=== PATIENT | male | born 1975 | race Caucasian/White ===

== ENCOUNTER 2018-01-16 15:15 | Inpatient (IN) | payer OTHER, BC ==
[~2018-01-16] VITALS: Ht 182.9 cm; Wt 81.8 kg
[~2018-01-16 15:15] MED LIST: DEXAMETHASONE SOD PHOS 4 MG/ML VIAL IV ONE; MORPHINE SULFATE 2 MG/ML SYRINGE IV PUSH ONE; ONDANSETRON HCL 4 MG/2 ML VIAL IV ONE; ONDANSETRON HCL 4 MG/2 ML VIAL IV PUSH ONE; PHENYLEPH/NS 1000 MCG/10 ML SYR IV ONE; PHENYLEPHRINE HCL 10 MG/ML VIAL IV ONE; PROPOFOL 200 MG/20 ML AMP IV ONE; ROCURONIUM INJ 50 MG/5 ML SYRINGE IV PUSH ONE; SODIUM CHLORIDE 0.9% 20 ML VIAL IV ONE; STERILE WATER FOR INJECTION 20 ML VIAL IV ONE; SUCCINYLCHOLINE CHLORIDE 200 MG/10 ML VIAL IV ONE; VECURONIUM BROMIDE 20 MG VIAL IV ONE; ePHEDrine/NS 25 MG/5 ML SYRINGE IV ONE
[2018-01-16] MEDS ORDERED: LIDOCAINE 1%/EPINEPHrine 1:100,000 SOLN 30 ML VIAL ONE (15:28)
[2018-01-16 15:43] LABS: AUTOMATED NEUTROPHIL # 18.4 TH/MM3 (1.8-7.7); BASOPHIL # 0.1 TH/MM3 (0-0.2); BASOPHIL % 0.3 % (0.0-2.0); EOSINOPHIL # 0.1 TH/MM3 (0-0.4); EOSINOPHIL % 0.3 % (0.0-4.0); HEMATOCRIT 35.2 % (39.0-51.0); HEMOGLOBIN 11.8 GM/DL (13.0-17.0); LYMPH % 13.8 % (9.0-44.0); LYMPHOCYTE # 3.2 TH/MM3 (1.0-4.8); MEAN CELL VOLUME 90.3 FL (80.0-100.0); MEAN CORPUSCULAR HEMOGLOBIN 30.4 PG (27.0-34.0); MEAN CORPUSCULAR HGB CONC 33.6 % (32.0-36.0); MEAN PLATELET VOLUME 8.4 FL (7.0-11.0); MONO % 4.8 % (0.0-8.0); MONOCYTE # 1.1 TH/MM3 (0-0.9); NEUT % 80.8 % (16.0-70.0); PLATELET COUNT 157 TH/MM3 (150-450); RED CELL DISTRIBUTION WIDTH 12.4 % (11.6-17.2); WHITE BLOOD COUNT 22.8 TH/MM3 (4.0-11.0)
[2018-01-16] MEDS ORDERED: DIPHTH/TETANUS/ACEL PERTUSSIS (BOOSTER) 0.5 ML VIAL/PFS IM ONE (15:58)
[2018-01-16 16:04] LABS: INTERNATIONAL NORMALIZED RATIO 1.2 RATIO
[2018-01-16] MEDS ORDERED: IOHEXOL 350 MG/ML 10 ML VIAL (for RAD DIAG) IVCONTRAST ONE (16:13)
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
[2018-01-16] MEDS ORDERED: ONDANSETRON HCL 4 MG/2 ML VIAL IV PUSH PRN (16:30)
[2018-01-16] MEDS ORDERED: ENALAPRILAT 1.25 MG/ML VIAL IV PUSH PRN (16:30)
[2018-01-16] MEDS ORDERED: CHLORHEXIDINE GLUCONATE 2 % 1 PACK (2 CLOTHS) TOP PRN (16:30)
[2018-01-16] MEDS ORDERED: MISCELLANEOUS NURSING INFORMATION XX SCH (16:30)
[2018-01-16] MEDS ORDERED: SODIUM CHLORIDE 0.9% FLUSH 10 ML FLUSH IV FLUSH PRN (16:30)
[2018-01-16 16:41] VITALS: O2SAT 99
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
[2018-01-16] MEDS ORDERED: GENTAMICIN SULFATE 80 MG/2 ML VIAL ONE (17:05)
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
[2018-01-16] MEDS ORDERED: SODIUM CHLOR 0.9% 250 ML INJ 250 ML ONE (17:11)
[2018-01-16] MEDS ORDERED: VANCOMYCIN HCL 1000 MG VIAL ONE (17:11)
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
[2018-01-16 17:59] LABS: AUTOMATED NEUTROPHIL # 12.4 TH/MM3 (1.8-7.7); BASOPHIL % 0.1 % (0.0-2.0); EOSINOPHIL % 0.1 % (0.0-4.0); HEMATOCRIT 27.3 % (39.0-51.0); HEMOGLOBIN 9.1 GM/DL (13.0-17.0); LYMPH % 8.3 % (9.0-44.0); LYMPHOCYTE # 1.2 TH/MM3 (1.0-4.8); MEAN CELL VOLUME 88.8 FL (80.0-100.0); MEAN CORPUSCULAR HEMOGLOBIN 29.6 PG (27.0-34.0); MEAN CORPUSCULAR HGB CONC 33.3 % (32.0-36.0); MEAN PLATELET VOLUME 7.6 FL (7.0-11.0); NEUT % 84.5 % (16.0-70.0); PLATELET COUNT 93 TH/MM3 (150-450); RED BLOOD COUNT 3.07 MIL/MM3 (4.50-5.90); RED CELL DISTRIBUTION WIDTH 13.7 % (11.6-17.2); WHITE BLOOD COUNT 14.6 TH/MM3 (4.0-11.0)
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
[2018-01-16 18:13] LABS: BICARBONATE 23.7 MEQ/L (21.0-32.0); CALCIUM 11.5 MG/DL (8.5-10.1)
[2018-01-16] MEDS ORDERED: NALOXONE HCL 0.4 MG/ML AMP IV PUSH PRN (18:15)
[2018-01-16] MEDS ORDERED: ONDANSETRON HCL 4 MG/2 ML VIAL IVP PRN (18:15)
[2018-01-16] MEDS ORDERED: ACETAMINOPHEN/HYDROcodone 325 MG/5 MG TAB PO PRN (18:15)
[2018-01-16] MEDS ORDERED: MORPHINE SULFATE 4 MG/ML INJ IV PUSH PRN ×2 (18:15→18:30)
--- NOTE | 2018-01-16 18:24 | PD.OP ---
Operative Report Date of Surgery: Jan 16, 2018 Preoperative Diagnosis: Right tibia/fibula segmental open grade 3 fractures Left shoulder comminuted proximal humerus fracture. Postoperative Diagnosis: Same Procedure: Right leg irrigation and debridement of skin through bone for open tibia and fibula fractures. Right leg treatment of open tibia fractures with intramedullary nail Anesthesia: Gen. Surgeon: Rafa Hanson Ad Operations Associate(s): CATRACHO Gomez The surgical procedure was assisted by my Advanced Registered Nurse Practitioner. My YARN DRY ROOM WORKER presence was necessary throughout this case for the manipulation and positioning of the surgical extremity. My YARN DRY ROOM WORKER was assisting me throughout the duration of this procedure. The skill set of an Advance Registered Nurse Practitioner was medically necessary to complete this procedure. During the surgical case, the cardiovascular surgical tech was working at the back table and the Advance Registered Nurse Practitioner was directly assisting me. Operation and Findings: Implants: Synthes tibal nail, size: 10 x 3 60, statically locked Estimated blood loss: 400 cc The patient received intravenous Ancef, vancomycin, gentamicin. After the appropriate anesthesia was administered, the patient was prepped and draped in the supine position in the usual sterile fashion. Skin assessment showed multiple lacerations. Proximally the laceration was lateral. There was exposed muscle and subcutaneous fascia. Deep the open fibula fracture was palpated. There was a small transverse laceration distal third over the open tibia fracture. Small 1 cm laceration distal third lateral leg was noted where the fibula came through the skin. Minor abrasions posterior distal thigh noted.. There was mild to moderate swelling noted to the leg. There was no evidence of compartment syndrome during the case nor at the end of the case. We debrided skin edges for portions that were torn. We debrided down into the muscle in the proximal lateral laceration. Only minimal devitalization of the muscle was noted. We exposed all of the open portions of the fractures and curetted bone edges. Minimal contamination was noted throughout each of these open areas. We thoroughly irrigated all of the open wounds. We exchanged instruments and gloves. We made incision proximal to the patella. We carefully dissected down to the quadriceps tendon. An in-line longitudinal split to the quadriceps tendon was completed. The capsule of the knee was entered. We placed the smooth trocar within the knee joint down to the proximal tibia, protecting the patella and trochlea during the case. We then reduced the tibia fractures manually and under fluoroscopic imaging. A ball-tipped guidewire was placed into the tibial shaft, passing the fracture sites. This was placed down to the distal physeal line of the tibia. We then sequentially reamed the tibia to 1 mm larger than the implanted tibial nail. We obtained good cortical chatter. We measured the appropriate length for the tibial nail. We then passed the tibial nail into the medullary canal of the tibia. The nail was secured proximally with 2 screw(s), using the associated jig as a guide .We used the perfect upper sioux technique distally to visualize the distal tibial screw holes. We placed 2 screws distally. We thoroughly irrigated the incisions again including a lavage of the arthrotomy site proximally. The quadriceps split was closed with a #1 Vicryl. The remaining incisions were closed with #2-0 Vicryl, followed by derek. The postoperative plan is for nonweightbearing to the right lower extremity. Additionally we have ordered 3 days of intravenous Ancef for the open fracture. Additionally, a sling was ordered for the left shoulder with nonweightbearing to the left shoulder. Chemical DVT prophylaxis will be performed with Lovenox initially followed by aspirin. Rafa Hanson MD Jan 16, 2018 18:23
[2018-01-16] MEDS ORDERED: NORC5TAB PO (18:26)
[2018-01-16] MEDS ORDERED: ASPI-183 PO (18:26)
[2018-01-16] MEDS ORDERED: ENOX40IN SQ (18:26)
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
[2018-01-16] MEDS ORDERED: CALCIUM CHLORIDE 10% SOLN 1 GRAM/10 ML SYR ONE ×2 (18:33→19:57)
[2018-01-16 19:15] VITALS: O2SAT 100
[2018-01-16] MEDS ORDERED: PROPOFOL 1000 MG/100 ML INJ 100 ML ONE (19:24)
[2018-01-16] MEDS: PROPOFOL 1000 MG/100 ML INJ 100 ML IV PRN (19:30)
[2018-01-16] MEDS ORDERED: *morphine SULFATE 4 MG/ML PERIprocedure ONLY ONE (19:34)
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
[2018-01-16] MEDS ORDERED: HEPARIN SODIUM - IV 10,000 UNITS/10 ML VIAL ONE (19:38)
[2018-01-16] MEDS ORDERED: PROTAMINE SULFATE 50 MG/5 ML VIAL ONE (19:38)
[2018-01-16] MEDS ORDERED: DO NOT ADM ANY ANTICOAGULANT DRUGS PRN (19:45)
[2018-01-16 19:54] VITALS: BP 114/56; PULSE 118; RESP 10; O2SAT 100
[2018-01-16] MEDS ORDERED: SODIUM BICARBONATE 8.4% INJ 50 MEQ/50 ML SYR ONE (19:57)
[2018-01-16] MEDS ORDERED: ACETAMINOPHEN 1000 MG/100 ML 100 ML IV ONE (19:58)
[2018-01-16] MEDS ORDERED: ENOXAPARIN SODIUM 40 MG/0.4 ML SYRINGE SQ SCH (20:00)
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
--- NOTE | 2018-01-16 20:15 | RADRPT ---
EXAM DATE/TIME: 01/16/2018 19:35 [facility] COMPARISON: CHEST SINGLE AP, January 16, 2018, 15:17. INDICATIONS : Confirm central line placement. MEDICAL HISTORY : None. SURGICAL HISTORY : None. ENCOUNTER: Initial ACUITY: 1 day PAIN SCORE: Non-responsive. LOCATION: Bilateral chest FINDINGS: There is a right internal jugular central line place with the tip overlying the right brachiocephalic vein region. There is a right-sided chest tube in place. A pneumothorax is not clearly seen on this portable supine chest x-ray. There is subcutaneous emphysema. Right-sided rib fractures are seen. ET tube is well placed. The NG tube tip is at the distal esophagus. CONCLUSION: Intrajugular central line in place with the tip overlying the right brachiocephalic vein region. Richard Rutherford MD on January 16, 2018 at 20:11 Board Certified Radiologist. This report was verified electronically.
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
[2018-01-16] MEDS ORDERED: fentaNYL DRIP 250 ML IV PRN ×2 (20:45→21:45)
[2018-01-16] MEDS ORDERED: PROPOFOL 1000 MG/100 ML INJ 100 ML IV PRN (20:45)
[2018-01-16] MEDS: BACITRACIN TOP OINT 15 GM TUBE TOP SCH (21:00)
[2018-01-16] MEDS: SODIUM CHLOR 0.9% 1000 ML INJ 1,000 ML IV SCH (22:00)
[2018-01-16 22:08] LABS: AUTOMATED NEUTROPHIL # 8.9 TH/MM3 (1.8-7.7); BASOPHIL % 0.1 % (0.0-2.0); HEMATOCRIT 22.5 % (39.0-51.0); HEMOGLOBIN 7.8 GM/DL (13.0-17.0); LYMPH % 3.4 % (9.0-44.0); LYMPHOCYTE # 0.3 TH/MM3 (1.0-4.8); MEAN CELL VOLUME 88.4 FL (80.0-100.0); MEAN CORPUSCULAR HEMOGLOBIN 30.6 PG (27.0-34.0); MEAN CORPUSCULAR HGB CONC 34.6 % (32.0-36.0); MEAN PLATELET VOLUME 7.7 FL (7.0-11.0); MONO % 7.8 % (0.0-8.0); MONOCYTE # 0.8 TH/MM3 (0-0.9); NEUT % 88.7 % (16.0-70.0); PLATELET COUNT 91 TH/MM3 (150-450); RED BLOOD COUNT 2.55 MIL/MM3 (4.50-5.90); RED CELL DISTRIBUTION WIDTH 13.7 % (11.6-17.2)
[2018-01-16 22:10] LABS: INTERNATIONAL NORMALIZED RATIO 1.2 RATIO; PROTHROMBIN TIME - PATIENT 12.2 SEC (9.8-11.6)
[2018-01-16 22:20] VITALS: O2SAT 97
[2018-01-16 22:21] LABS: BICARBONATE 24.5 MEQ/L (21.0-32.0); CALCIUM 7.4 MG/DL (8.5-10.1); CREATININE 0.9 MG/DL (0.60-1.30)
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
[2018-01-16 22:30] VITALS: BP 142/85; PULSE 100; PULSE 102; RESP 14; TEMP 97.9; O2SAT 100
[2018-01-16 22:40] LABS: CALCIUM-PROTEIN CORRECTED 9.3 MG/DL (8.5-10.1); TOTAL PROTEIN 3.9 GM/DL (6.4-8.2)
[2018-01-16] MEDS: DOCUSATE SODIUM 100 MG CAP PO SCH (22:50)
[2018-01-16] MEDS: PANTOPRAZOLE SODIUM 40 MG VIAL IVP SCH (22:50)
--- NOTE | 2018-01-16 22:55 | RADRPT ---
EXAM DATE/TIME: 01/16/2018 22:26 [facility] COMPARISON: CHEST SINGLE AP, January 16, 2018, 19:35. INDICATIONS : Evaluate for pneumothorax. MEDICAL HISTORY : Unresponsive. SURGICAL HISTORY : Unresponsive. ENCOUNTER: Initial ACUITY: 1 day PAIN SCORE: Non-responsive. LOCATION: Bilateral chest FINDINGS: ET tube, NG tube and right internal jugular central line appear well placed. There is a right chest t ube. A significant right pneumothorax is not seen on this supine portable chest x-ray. There is subcu taneous emphysema seen in the right chest. The heart and mediastinal structures are normal in size. T here is linear increased density in the right midlung likely related to contusion or atelectasis. Rig ht rib fractures are seen. CONCLUSION: A pneumothorax is not seen on this supine chest x-ray. There is a right chest tube present. No medias tinal shift is seen. Richard Rutherford MD on January 16, 2018 at 22:50 Board Certified Radiologist. This report was verified electronically.
[2018-01-17] VITALS (17 sets, daily range): BP systolic 92–168; BP diastolic 48–58; PULSE 56–110; RESP 14–18; TEMP 96.8–99; O2SAT 95–100
[2018-01-17 00:43] LABS: AUTOMATED NEUTROPHIL # 7.7 TH/MM3 (1.8-7.7); BASOPHIL % 0.1 % (0.0-2.0); HEMATOCRIT 23.7 % (39.0-51.0); HEMOGLOBIN 8.5 GM/DL (13.0-17.0); LYMPH % 3.6 % (9.0-44.0); LYMPHOCYTE # 0.3 TH/MM3 (1.0-4.8); MEAN CORPUSCULAR HEMOGLOBIN 30.9 PG (27.0-34.0); MEAN CORPUSCULAR HGB CONC 35.9 % (32.0-36.0); MEAN PLATELET VOLUME 8.1 FL (7.0-11.0); MONO % 7.2 % (0.0-8.0); MONOCYTE # 0.6 TH/MM3 (0-0.9); NEUT % 89.1 % (16.0-70.0); PLATELET COUNT 104 TH/MM3 (150-450); RED BLOOD COUNT 2.76 MIL/MM3 (4.50-5.90); RED CELL DISTRIBUTION WIDTH 13.9 % (11.6-17.2); WHITE BLOOD COUNT 8.7 TH/MM3 (4.0-11.0)
[2018-01-17] MEDS: PROPOFOL 1000 MG/100 ML INJ 100 ML IV PRN ×2 (01:00→06:50)
[2018-01-17] MEDS ORDERED: NOREPINEPHRINE 4 MG/D5W 250 ML IV PRN (01:15)
[2018-01-17] MEDS: CHLORHEXIDINE GLUCONATE 2 % 1 PACK (2 CLOTHS) TOP SCH ×2 (01:34→20:06)
[2018-01-17] MEDS: SODIUM CHLOR 0.9% 1000 ML INJ 1,000 ML IV SCH (03:44)
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
[2018-01-17 04:34] LABS: AUTOMATED NEUTROPHIL # 10.9 TH/MM3 (1.8-7.7); BASOPHIL % 0.1 % (0.0-2.0); HEMATOCRIT 26.9 % (39.0-51.0); HEMOGLOBIN 9.5 GM/DL (13.0-17.0); LYMPH % 4.9 % (9.0-44.0); LYMPHOCYTE # 0.6 TH/MM3 (1.0-4.8); MEAN CELL VOLUME 86.7 FL (80.0-100.0); MEAN CORPUSCULAR HEMOGLOBIN 30.5 PG (27.0-34.0); MEAN CORPUSCULAR HGB CONC 35.2 % (32.0-36.0); MEAN PLATELET VOLUME 7.7 FL (7.0-11.0); MONO % 7.8 % (0.0-8.0); NEUT % 87.2 % (16.0-70.0); PLATELET COUNT 123 TH/MM3 (150-450); RED CELL DISTRIBUTION WIDTH 13.9 % (11.6-17.2); WHITE BLOOD COUNT 12.5 TH/MM3 (4.0-11.0)
[2018-01-17 04:55] LABS: BICARBONATE 25.4 MEQ/L (21.0-32.0); CALCIUM 7.2 MG/DL (8.5-10.1); CREATININE 1.12 MG/DL (0.60-1.30)
[2018-01-17 05:12] LABS: CALCIUM-PROTEIN CORRECTED 8.6 MG/DL (8.5-10.1); TOTAL PROTEIN 4.6 GM/DL (6.4-8.2)
[2018-01-17] MEDS: MULTIVITAMINS/MINERALS THERAPEUTIC TAB PO SCH (08:43)
[2018-01-17] MEDS: DOCUSATE SODIUM 100 MG CAP PO SCH ×2 (08:43→20:48)
[2018-01-17] MEDS: BACITRACIN TOP OINT 15 GM TUBE TOP SCH ×2 (09:00→20:48)
--- NOTE | 2018-01-17 10:27 | PD.ORT.PN ---
Subjective Subjective Remarks Patient has been extubated. Patient says he feels much better. He has several family members at the bedside. Objective Vitals Vital Signs Date Time Temp Pulse Resp B/P (MAP) Pulse Ox O2 Delivery O2 Flow Rate FiO2 01/17/18 09:34 98 Nasal Cannula 3.00 01/17/18 09:34 98 Nasal Cannula 3 01/17/18 08:43 97 40 01/17/18 06:00 80 01/17/18 04:00 98.1 74 14 112/58 (76) 100 01/17/18 04:00 40 01/17/18 04:00 74 01/17/18 03:30 98 40 01/17/18 02:00 58 01/17/18 01:25 96.8 75 14 93/51 96 01/17/18 01:15 73 87/53 01/17/18 00:00 97.6 82 14 106/58 (74) 99 01/17/18 00:00 40 01/16/18 22:30 100 01/16/18 22:30 40 01/16/18 22:30 97.9 102 14 142/85 (104) 100 01/16/18 22:20 97 50 01/16/18 20:00 50 01/16/18 20:00 120 16 167/68 (101) 100 Mechanical Ventilator 50 120/62 (81) 01/16/18 19:54 118 10 114/56 100 01/16/18 19:45 107 10 143/63 (89) 100 Mechanical Ventilator 50 104/52 (69) 01/16/18 19:30 118 10 147/67 (93) 100 Mechanical Ventilator 50 107/54 (71) 01/16/18 19:15 96.2 01/16/18 19:15 105 10 137/69 (91) 100 Mechanical Ventilator 50 131/66 (87) 01/16/18 19:15 100 50 01/16/18 19:11 50 01/16/18 19:11 96.2 116 10 187/80 (115) 95 Mechanical Ventilator 50 143/73 (96) 01/16/18 16:41 99 15.00 100 I/O 01/16/18 01/16/18 01/16/18 01/17/18 01/17/18 01/17/18 07:00 15:00 23:00 07:00 15:00 23:00 Intake Total 6484 ml 3400 ml Output Total 1850 ml 2975 ml Balance 4634 ml 425 ml Intake IV Total 6000 ml 1400 ml Packed Cells 250 ml Cryoprecipitate 484 ml Blood Product IV Normal Saline Flush 250 ml Other 1500 ml Output Urine Total 1050 ml 2750 ml Gastric Drainage Total 0 ml Chest Tube Drainage Total 350 ml 50 ml Drainage Total 125 ml Estimated Blood Loss 450 ml 50 ml Result Diagram: 01/17/18 0415 01/17/18 0415 Other Results Laboratory Tests Test 01/16/18 15:23 01/16/18 21:35 Prothromb Time International Ratio 1.2 RATIO 1.2 RATIO Prothrombin Time 12.0 SEC (9.8-11.6) 12.2 SEC (9.8-11.6) Imaging Last 24 hours Impressions Chest X-Ray 01/17/18 0600 Signed Impressions: Service Date/Time: Wednesday, January 17, 2018 03:08 - CONCLUSION: No significant interval change. Right-sided chest tube in place with prominent right-sided subcutaneous emphysema but no evidence of pneumothorax. Kartik Garcia MD Thoracic Spine CT 01/16/181537 Signed Impressions: Service Date/Time: Tuesday, January 16, 2018 15:56 - CONCLUSION: 1. No evidence of acute bony or soft tissue thoracic spine trauma. 2. Right pneumothorax, right lung contusion and subcutaneous emphysema. Morris Vu MD Lumbar Spine CT 01/16/181537 Signed Impressions: Service Date/Time: Tuesday, January 16, 2018 15:56 - CONCLUSION: 1. Large posterior subcutaneous hematoma with active extravasation from L4-S1. 2. No evidence of acute bone injury. 3. Advanced degenerative disease L5-S1. 4. No other significant abnormality. Morris Vu MD Head CT 01/16/181537 Signed Impressions: Service Date/Time: Tuesday, January 16, 2018 15:45 - CONCLUSION: No acute disease. Richard Rutherford MD Chest X-Ray 01/16/181537 Signed Impressions: Service Date/Time: Tuesday, January 16, 2018 15:17 - CONCLUSION: Right chest tube with resolution of the previously seen tension. Some residual pneumothorax is still suspected. Richard Rutherford MD Chest CT 01/16/181537 Signed Impressions: Service Date/Time: Tuesday, January 16, 2018 15:56 - CONCLUSION: 1. Large persistent right pneumothorax with a right-sided chest tube. 2. Bilateral areas is suspected pulmonary contusion. 3. Subpleural blebs or pneumatoceles. 4. Left proximal humeral fracture with extravasation/hemorrhage. 5. Right third through seventh rib fractures. 6. Subcutaneous emphysema in the right chest and axilla Richard Rutherford MD ADDENDUM: COMPARISON: CT CERVICAL SPINE W/O CONTRAST, January 16, 2018, 15:45. The CT scan was reviewed with Dr. Hammond. The axillary artery across the region of the fracture is occluded for a short segment. There is a large amount of surrounding hematoma. The artery reconstitutes at its junction with the brachial. The exam also demonstrates a small amount of active contrast extravasation at the site of the patient's fracture. Findings would be consistent with axillary artery injury. Juan Carlos Martinez MD Cervical Spine CT 01/16/18 1538 Signed Impressions: Service Date/Time: Tuesday, January 16, 2018 15:45 - CONCLUSION: 1. No evidence of acute cervical bony or soft tissue injury. 2. Subcutaneous emphysema at the base of the neck and superior mediastinum Morris Vu MD Abdomen/Pelvis CT 01/16/18 1538 Signed Impressions: Service Date/Time: Tuesday, January 16, 2018 15:56 - CONCLUSION: 1. Hemorrhage in the superficial fat in the midline at the lower back region from the L3-S1 levels. 2. No acute intra-abdominal or pelvic abnormality is seen. Richard Rutherford MD Pelvis X-Ray 01/16/18 1518 Signed Impressions: Service Date/Time: Tuesday, January 16, 2018 15:17 - CONCLUSION: No acute disease. Richard Rutherford MD Chest X-Ray 01/16/18 1518 Signed Impressions: Service Date/Time: Tuesday, January 16, 2018 15:17 - CONCLUSION: Right tension pneumothorax. Richard Rutherford MD Objective Remarks The patient is awake and alert. The patient seems to have good understanding now of what happened yesterday although he does not remember the events of yesterday. Right lower extremity has mild to moderate bloody drainage on the digits. The compartments are soft. He can easily move the toes on the right foot. He has a bounding 2 posterior size pedis pulse. Left upper extremity has dressings and a wound VAC. He has a 2+ radial pulse. He moves the fingers well on the left hand. Assessment & Plan Assessment and Plan Postop day #1 status post right leg irrigation and debridement with intramedullary nailing of tibia. Postop day #1 status post left upper extremity fasciotomy and axillary artery exploration (Dr. Aguila), with left proximal humerus fracture. Change dressing on the right lower extremity today, nursing aware. They will call me if there are problems with the wounds. 3 days of intravenous antibiotics for open fracture right leg. Lovenox for DVT prophylaxis. Nonweightbearing to right lower extremity. Dr. Ceron Took the patient back yesterday for a decompression of compartment syndrome of the upper extremity along with relieving hematoma off of compressed axillary artery. The patient is doing very well from this currently with a strong pulse on the left hand. He does still have a fracture of the left proximal humerus. I will talk to my partner Dr. Patterson to see if he wants to consider surgical management for ORIF of the proximal humerus. He currently still has an open wound in that area with a wound VAC. Dr. Ceron has communicated to me that he would expect closure could be done for that wound within the next couple of days. Rafa Hanson MD Jan 17, 2018 10:27
[2018-01-17] MEDS: ENOXAPARIN SODIUM 30 MG/0.3 ML SYRINGE SQ SCH (13:07)
[2018-01-17] MEDS: METHOCARBAMOL 500 MG TAB PO SCH ×2 (13:16→20:47)
[2018-01-17] MEDS: LIDOCAINE HCL 5% PATCH T-DERMAL SCH (13:16)
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
[2018-01-17] MEDS ORDERED: POTASSIUM PHOSPHATE INJ 30 MMOL in SODIUM CHLOR 0.9% 250 ML INJ 250 ML IV PRN (14:00)
[2018-01-17] MEDS ORDERED: POTASSIUM CHLOR 20 MEQ PREMIX 100 ML IV PRN ×2 (14:00)
[2018-01-17] MEDS ORDERED: POTASSIUM PHOSPHATE MONOBASIC 500 MG TAB PO/TUBE PRN (14:00)
[2018-01-17] MEDS ORDERED: SODIUM PHOSPHATE INJ 30 MMOL in SODIUM CHLOR 0.9% 250 ML INJ 240 ML IV PRN (14:00)
[2018-01-17] MEDS ORDERED: POTASSIUM PHOSPHATE MONOBASIC 500 MG TAB PO PRN (14:00)
[2018-01-17] MEDS ORDERED: MAGNESIUM OXIDE 400 MG TAB PO PRN (14:00)
[2018-01-17] MEDS ORDERED: MAGNESIUM SULFATE INJ 2 GM in SODIUM CHLORIDE 0.9% INJ 96 ML IV PRN (14:00)
[2018-01-17] MEDS ORDERED: MAGNESIUM SULFATE INJ 4 GM in SODIUM CHLORIDE 0.9% INJ 92 ML IV PRN (14:00)
[2018-01-17] MEDS ORDERED: POTASSIUM CHLORIDE 20 MEQ PWD PACKET PO PRN (14:00)
[2018-01-17] MEDS ORDERED: POTASSIUM CHLOR 40 MEQ PREMIX 100 ML IV PRN ×2 (14:00)
[2018-01-17 14:33] LABS: MAGNESIUM 1.6 MG/DL (1.5-2.5)
[2018-01-17] MEDS: MORPHINE SULFATE 4 MG/ML INJ IV PUSH PRN ×2 (14:38→20:58)
[2018-01-17] MEDS: PANTOPRAZOLE SODIUM 40 MG VIAL IVP SCH (18:00)
[2018-01-17] MEDS ORDERED: ENOXAPARIN SODIUM 40 MG/0.4 ML SYRINGE SQ SCH (18:30)
[2018-01-17] MEDS: ACETAMINOPHEN/HYDROcodone 325 MG/5 MG TAB PO PRN (18:51)
[2018-01-18] VITALS (14 sets, daily range): BP systolic 98–128; BP diastolic 53–70; PULSE 80–104; RESP 12–20; TEMP 98.1–98.5; O2SAT 92–99
[2018-01-18] MEDS: ENOXAPARIN SODIUM 30 MG/0.3 ML SYRINGE SQ SCH ×2 (01:05→11:15)
[2018-01-18] MEDS: ACETAMINOPHEN/HYDROcodone 325 MG/5 MG TAB PO PRN (01:06)
[2018-01-18] MEDS: METHOCARBAMOL 500 MG TAB PO SCH ×3 (05:01→22:09)
[2018-01-18] MEDS: MORPHINE SULFATE 4 MG/ML INJ IV PUSH PRN ×2 (05:18→13:00)
--- NOTE | 2018-01-18 05:24 | RADRPT ---
EXAM DATE/TIME: 01/18/2018 04:46 [facility] COMPARISON: CHEST SINGLE AP, January 17, 2018, 3:08. INDICATIONS : Short of breath. MEDICAL HISTORY : None. SURGICAL HISTORY : None. ENCOUNTER: Subsequent ACUITY: 2 days PAIN SCORE: 0/10 LOCATION: Bilateral chest FINDINGS: A single view of the chest demonstrates minimal bibasilar densities. Right-sided chest tube without d efinite pneumothorax. Subcutaneous emphysema on the right. Right jugular central line stable position .. CONCLUSION: Bibasilar densities likely atelectasis. No pneumothorax on the right. Jose Rodríguez MD on January 18, 2018 at 5:21 Board Certified Radiologist. This report was verified electronically.
[2018-01-18 05:39] LABS: AUTOMATED NEUTROPHIL # 6.1 TH/MM3 (1.8-7.7); BASOPHIL % 0.3 % (0.0-2.0); EOSINOPHIL % 0.5 % (0.0-4.0); HEMATOCRIT 22.1 % (39.0-51.0); HEMOGLOBIN 7.7 GM/DL (13.0-17.0); LYMPH % 14.3 % (9.0-44.0); LYMPHOCYTE # 1.2 TH/MM3 (1.0-4.8); MEAN CELL VOLUME 87.7 FL (80.0-100.0); MEAN CORPUSCULAR HEMOGLOBIN 30.5 PG (27.0-34.0); MEAN CORPUSCULAR HGB CONC 34.8 % (32.0-36.0); MONO % 9.6 % (0.0-8.0); MONOCYTE # 0.8 TH/MM3 (0-0.9); NEUT % 75.3 % (16.0-70.0); PLATELET COUNT 86 TH/MM3 (150-450); RED BLOOD COUNT 2.52 MIL/MM3 (4.50-5.90); RED CELL DISTRIBUTION WIDTH 14.3 % (11.6-17.2); WHITE BLOOD COUNT 8.1 TH/MM3 (4.0-11.0)
[2018-01-18 05:49] LABS: BICARBONATE 30.4 MEQ/L (21.0-32.0); CALCIUM 7.6 MG/DL (8.5-10.1); CREATININE 0.87 MG/DL (0.60-1.30)
[2018-01-18 08:04] LABS: BANDS 25 % (0-6); LYMPHOCYTES 22 % (9-44); MONOCYTES 7 % (0-8); NEUTROPHIL # MANUAL DIFF 5.8 TH/MM3 (1.8-7.7); POLYS (SEG NEUTROPHILS) 46 % (16-70)
[2018-01-18] MEDS: BACITRACIN TOP OINT 15 GM TUBE TOP SCH ×2 (09:00→20:15)
[2018-01-18] MEDS ORDERED: SODIUM CHLOR 0.9% 250 ML INJ 250 ML IV ONE (10:00)
[2018-01-18] MEDS: MULTIVITAMINS/MINERALS THERAPEUTIC TAB PO SCH (10:48)
[2018-01-18] MEDS: FAMOTIDINE 20 MG TAB PO SCH ×2 (10:48→20:13)
[2018-01-18] MEDS: GABAPENTIN 300 MG CAP PO SCH ×3 (10:48→17:48)
[2018-01-18] MEDS: ACETAMINOPHEN/HYDROcodone 325 MG/10 MG TAB PO PRN ×4 (10:49→23:49)
[2018-01-18] MEDS: DOCUSATE SODIUM 50 MG/SENNA 8.6 MG TAB PO SCH ×2 (10:49→20:13)
[2018-01-18] MEDS: LIDOCAINE HCL 5% PATCH T-DERMAL SCH (10:51)
--- NOTE | 2018-01-18 12:25 | PD.ORT.PN ---
Subjective Post Op Day #: 2 Subjective Remarks Patient awake and talkative today. Patient reports moderate pain to left shoulder and right lower leg. Objective Vitals Vital Signs Date Time Temp Pulse Resp B/P (MAP) Pulse Ox O2 Delivery O2 Flow Rate FiO2 01/18/18 11:10 98.1 102 20 113/63 92 01/18/18 08:27 92 Nasal Cannula 2.00 01/18/18 06:00 102 01/18/18 04:00 98.5 86 12 98/53 (68) 93 01/18/18 04:00 96 01/18/18 02:00 96 01/18/18 00:00 86 01/18/18 00:00 98.2 86 12 98/53 (68) 93 01/17/18 22:00 94 01/17/18 20:00 99.0 92 18 107/57 (74) 95 01/17/18 20:00 92 01/17/18 19:00 93 Nasal Cannula 2.00 01/17/18 18:00 94 01/17/18 16:00 98.2 56 14 168/48 (88) 100 Arterial Line 01/17/18 16:00 62 01/17/18 14:00 88 I/O 01/17/18 01/17/18 01/17/18 01/18/18 01/18/18 01/18/18 07:00 15:00 23:00 07:00 15:00 23:00 Intake Total 3400 ml 396.0 ml 500 ml Output Total 2975 ml 1640 ml 1035 ml Balance 425 ml 396.0 ml -1640 ml -535 ml Intake Oral 500 ml IV Total 1400 ml 396.0 ml Packed Cells 250 ml Blood Product IV Normal Saline Flush 250 ml Other 1500 ml Output Urine Total 2750 ml 1450 ml 875 ml Chest Tube Drainage Total 50 ml 90 ml 50 ml Drainage Total 125 ml 100 ml 110 ml Estimated Blood Loss 50 ml Bladder Scan Volume Amount 321 ml Result Diagram: 01/18/18 0506 01/18/18 0506 Imaging Last 24 hours Impressions Chest X-Ray 01/17/18 0600 Signed Impressions: Service Date/Time: Wednesday, January 17, 2018 03:08 - CONCLUSION: No significant interval change. Right-sided chest tube in place with prominent right-sided subcutaneous emphysema but no evidence of pneumothorax. Kartik Garcia MD Thoracic Spine CT 01/16/181537 Signed Impressions: Service Date/Time: Tuesday, January 16, 2018 15:56 - CONCLUSION: 1. No evidence of acute bony or soft tissue thoracic spine trauma. 2. Right pneumothorax, right lung contusion and subcutaneous emphysema. Morris Vu MD Lumbar Spine CT 01/16/188 Signed Impressions: Service Date/Time: Tuesday, January 16, 2018 15:56 - CONCLUSION: 1. Large posterior subcutaneous hematoma with active extravasation from L4-S1. 2. No evidence of acute bone injury. 3. Advanced degenerative disease L5-S1. 4. No other significant abnormality. Morris Vu MD Head CT 01/16/181537 Signed Impressions: Service Date/Time: Tuesday, January 16, 2018 15:45 - CONCLUSION: No acute disease. Richard Rutherford MD Chest X-Ray 01/16/181537 Signed Impressions: Service Date/Time: Tuesday, January 16, 2018 15:17 - CONCLUSION: Right chest tube with resolution of the previously seen tension. Some residual pneumothorax is still suspected. Richard Rutherford MD Chest CT 01/16/181537 Signed Impressions: Service Date/Time: Tuesday, January 16, 2018 15:56 - CONCLUSION: 1. Large persistent right pneumothorax with a right-sided chest tube. 2. Bilateral areas is suspected pulmonary contusion. 3. Subpleural blebs or pneumatoceles. 4. Left proximal humeral fracture with extravasation/hemorrhage. 5. Right third through seventh rib fractures. 6. Subcutaneous emphysema in the right chest and axilla Richard Rutherford MD ADDENDUM: COMPARISON: CT CERVICAL SPINE W/O CONTRAST, January 16, 2018, 15:45. The CT scan was reviewed with Dr. Hammond. The axillary artery across the region of the fracture is occluded for a short segment. There is a large amount of surrounding hematoma. The artery reconstitutes at its junction with the brachial. The exam also demonstrates a small amount of active contrast extravasation at the site of the patient's fracture. Findings would be consistent with axillary artery injury. Juan Carlos Martinez MD Cervical Spine CT 01/16/188 Signed Impressions: Service Date/Time: Tuesday, January 16, 2018 15:45 - CONCLUSION: 1. No evidence of acute cervical bony or soft tissue injury. 2. Subcutaneous emphysema at the base of the neck and superior mediastinum Morris Vu MD Abdomen/Pelvis CT 01/16/18 1538 Signed Impressions: Service Date/Time: Tuesday, January 16, 2018 15:56 - CONCLUSION: 1. Hemorrhage in the superficial fat in the midline at the lower back region from the L3-S1 levels. 2. No acute intra-abdominal or pelvic abnormality is seen. Richard Rutherford MD Pelvis X-Ray 01/16/18 1518 Signed Impressions: Service Date/Time: Tuesday, January 16, 2018 15:17 - CONCLUSION: No acute disease. Richard Rutherford MD Chest X-Ray 01/16/18 1518 Signed Impressions: Service Date/Time: Tuesday, January 16, 2018 15:17 - CONCLUSION: Right tension pneumothorax. Richard Rutherford MD Objective Remarks The patient is awake and alert. Right lower extremity dressings were changed and incisions are all well approximated with minimal drainage. No redness or s/s of infection. The compartments are soft. He can easily move the toes on the right foot. He has a bounding 2 posterior size pedis pulse. + SILT. Left upper extremity has dressings. He has a 2+ radial pulse. He moves the fingers well on the left hand. Skin abrasions to shoulder. Moderate swelling to shoulder. Assessment & Plan Ortho Post Op Day #: 2 Problem List: Assessment and Plan Postop day #2 status post right leg irrigation and debridement with intramedullary nailing of tibia. Postop day #2 status post left upper extremity fasciotomy and axillary artery exploration (Dr. Aguila), with left proximal humerus fracture. Daily dressing changes to the right lower extremity. 3 days of intravenous antibiotics for open fracture right leg. Lovenox for DVT prophylaxis. Nonweightbearing to right lower extremity. Dr. Ceron performed a decompression of compartment syndrome of the upper extremity along with relieving hematoma off of compressed axillary artery. The patient is doing very well from this currently with a strong pulse on the left hand. He does still have a fracture of the left proximal humerus. Dr. Patterson saw patient regarding left proximal humerus fracture and plan is for surgery tomorrow. Juan Carlos Curran Jan 18, 2018 12:25
--- NOTE | 2018-01-18 13:34 | PD.ORT.PN ---
Subjective Subjective Remarks POD 2 s/p IMN right tibia by Dr Hanson s/p evacuation of hematoma left axilla by Dr Aguila doing well. pain controlled. no complaints. Objective Vitals Vital Signs Date Time Temp Pulse Resp B/P (MAP) Pulse Ox O2 Delivery O2 Flow Rate FiO2 01/18/18 11:10 98.1 102 20 113/63 92 01/18/18 08:27 92 Nasal Cannula 2.00 01/18/18 06:00 102 01/18/18 04:00 98.5 86 12 98/53 (68) 93 01/18/18 04:00 96 01/18/18 02:00 96 01/18/18 00:00 86 01/18/18 00:00 98.2 86 12 98/53 (68) 93 01/17/18 22:00 94 01/17/18 20:00 99.0 92 18 107/57 (74) 95 01/17/18 20:00 92 01/17/18 19:00 93 Nasal Cannula 2.00 01/17/18 18:00 94 01/17/18 16:00 98.2 56 14 168/48 (88) 100 Arterial Line 01/17/18 16:00 62 01/17/18 14:00 88 I/O 01/17/18 01/17/18 01/17/18 01/18/18 01/18/18 01/18/18 07:00 15:00 23:00 07:00 15:00 23:00 Intake Total 3400 ml 396.0 ml 500 ml Output Total 2975 ml 1640 ml 1035 ml Balance 425 ml 396.0 ml -1640 ml -535 ml Intake Oral 500 ml IV Total 1400 ml 396.0 ml Packed Cells 250 ml Blood Product IV Normal Saline Flush 250 ml Other 1500 ml Output Urine Total 2750 ml 1450 ml 875 ml Chest Tube Drainage Total 50 ml 90 ml 50 ml Drainage Total 125 ml 100 ml 110 ml Estimated Blood Loss 50 ml Bladder Scan Volume Amount 321 ml Result Diagram: 01/18/18 0506 01/18/18 0506 Imaging Last 24 hours Impressions Chest X-Ray 01/17/18 0600 Signed Impressions: Service Date/Time: Wednesday, January 17, 2018 03:08 - CONCLUSION: No significant interval change. Right-sided chest tube in place with prominent right-sided subcutaneous emphysema but no evidence of pneumothorax. Kartik Garcia MD Thoracic Spine CT 01/16/181537 Signed Impressions: Service Date/Time: Tuesday, January 16, 2018 15:56 - CONCLUSION: 1. No evidence of acute bony or soft tissue thoracic spine trauma. 2. Right pneumothorax, right lung contusion and subcutaneous emphysema. Morris Vu MD Lumbar Spine CT 01/16/181537 Signed Impressions: Service Date/Time: Tuesday, January 16, 2018 15:56 - CONCLUSION: 1. Large posterior subcutaneous hematoma with active extravasation from L4-S1. 2. No evidence of acute bone injury. 3. Advanced degenerative disease L5-S1. 4. No other significant abnormality. Morris Vu MD Head CT 01/16/181537 Signed Impressions: Service Date/Time: Tuesday, January 16, 2018 15:45 - CONCLUSION: No acute disease. Richard Rutherford MD Chest X-Ray 01/16/181537 Signed Impressions: Service Date/Time: Tuesday, January 16, 2018 15:17 - CONCLUSION: Right chest tube with resolution of the previously seen tension. Some residual pneumothorax is still suspected. Richard Rutherford MD Chest CT 01/16/181537 Signed Impressions: Service Date/Time: Tuesday, January 16, 2018 15:56 - CONCLUSION: 1. Large persistent right pneumothorax with a right-sided chest tube. 2. Bilateral areas is suspected pulmonary contusion. 3. Subpleural blebs or pneumatoceles. 4. Left proximal humeral fracture with extravasation/hemorrhage. 5. Right third through seventh rib fractures. 6. Subcutaneous emphysema in the right chest and axilla Richard Rutherford MD ADDENDUM: COMPARISON: CT CERVICAL SPINE W/O CONTRAST, January 16, 2018, 15:45. The CT scan was reviewed with Dr. Hammond. The axillary artery across the region of the fracture is occluded for a short segment. There is a large amount of surrounding hematoma. The artery reconstitutes at its junction with the brachial. The exam also demonstrates a small amount of active contrast extravasation at the site of the patient's fracture. Findings would be consistent with axillary artery injury. Juan Carlos Martinez MD Cervical Spine CT 01/16/181537 Signed Impressions: Service Date/Time: Tuesday, January 16, 2018 15:45 - CONCLUSION: 1. No evidence of acute cervical bony or soft tissue injury. 2. Subcutaneous emphysema at the base of the neck and superior mediastinum Morris Vu MD Abdomen/Pelvis CT 01/16/18 1538 Signed Impressions: Service Date/Time: Tuesday, January 16, 2018 15:56 - CONCLUSION: 1. Hemorrhage in the superficial fat in the midline at the lower back region from the L3-S1 levels. 2. No acute intra-abdominal or pelvic abnormality is seen. Richard Rutherford MD Pelvis X-Ray 01/16/18 1518 Signed Impressions: Service Date/Time: Tuesday, January 16, 2018 15:17 - CONCLUSION: No acute disease. Richard Rutherford MD Chest X-Ray 01/16/18 1518 Signed Impressions: Service Date/Time: Tuesday, January 16, 2018 15:17 - CONCLUSION: Right tension pneumothorax. Richard Rutherford MD Objective Remarks The patient is awake and alert. Right lower extremity dressings were changed and incisions are all well approximated with minimal drainage. No redness or s/s of infection. The compartments are soft. He can easily move the toes on the right foot. He has a bounding 2 posterior size pedis pulse. + SILT. Left upper extremity has dressings. He has a 2+ radial pulse. He moves the fingers well on the left hand. Skin abrasions to shoulder. Moderate swelling to shoulder. Assessment & Plan Assessment and Plan Postop day #2 status post right leg irrigation and debridement with intramedullary nailing of tibia. Postop day #2 status post left upper extremity fasciotomy and axillary artery exploration (Dr. Aguila), with left proximal humerus fracture. Daily dressing changes to the right lower extremity. 3 days of intravenous antibiotics for open fracture right leg. Lovenox for DVT prophylaxis. Nonweightbearing to right lower extremity. NPO after MN sign consents plan for surgery tomorrow with Dr Patterson or ORIF of left proximal humerus Dr. Ceron performed a decompression of compartment syndrome of the upper extremity along with relieving hematoma off of compressed axillary artery. The patient is doing very well from this currently with a strong pulse on the left hand. He does still have a fracture of the left proximal humerus. Dr. Patterson saw patient regarding left proximal humerus fracture and plan is for surgery tomorrow. Marciano Sol/Partition Setter PA Jan 18, 2018 13:34
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
[2018-01-18] MEDS: RESP: ALBUTEROL 2.5 MG/IPRATROPIUM 0.5 MG NEB (SCH) NEB (20:00)
[2018-01-19] VITALS: BP 127/57; PULSE 101; RESP 17; TEMP 99.1; O2SAT 94
[2018-01-19 04:00] VITALS: BP 120/66; PULSE 97; RESP 17; TEMP 98.6
[2018-01-19] MEDS: CHLORHEXIDINE GLUCONATE 2 % 1 PACK (2 CLOTHS) TOP SCH (04:00)
[2018-01-19] MEDS: METHOCARBAMOL 500 MG TAB PO SCH ×4 (04:45→20:08)
[2018-01-19] MEDS: ACETAMINOPHEN/HYDROcodone 325 MG/10 MG TAB PO PRN ×4 (04:54→23:29)
[2018-01-19 05:46] LABS: AUTOMATED NEUTROPHIL # 5.6 TH/MM3 (1.8-7.7); BASOPHIL % 0.2 % (0.0-2.0); EOSINOPHIL # 0.1 TH/MM3 (0-0.4); EOSINOPHIL % 0.7 % (0.0-4.0); HEMATOCRIT 22.1 % (39.0-51.0); HEMOGLOBIN 7.7 GM/DL (13.0-17.0); LYMPH % 15.6 % (9.0-44.0); LYMPHOCYTE # 1.1 TH/MM3 (1.0-4.8); MEAN CELL VOLUME 87.3 FL (80.0-100.0); MEAN CORPUSCULAR HEMOGLOBIN 30.4 PG (27.0-34.0); MEAN CORPUSCULAR HGB CONC 34.8 % (32.0-36.0); MEAN PLATELET VOLUME 7.9 FL (7.0-11.0); MONO % 8.3 % (0.0-8.0); MONOCYTE # 0.6 TH/MM3 (0-0.9); NEUT % 75.2 % (16.0-70.0); PLATELET COUNT 86 TH/MM3 (150-450); RED BLOOD COUNT 2.53 MIL/MM3 (4.50-5.90); RED CELL DISTRIBUTION WIDTH 14.3 % (11.6-17.2); WHITE BLOOD COUNT 7.4 TH/MM3 (4.0-11.0)
[2018-01-19 06:14] LABS: BICARBONATE 31.7 MEQ/L (21.0-32.0); CALCIUM 7.6 MG/DL (8.5-10.1); CREATININE 0.81 MG/DL (0.60-1.30)
[2018-01-19 08:00] VITALS: BP 123/63; PULSE 96; RESP 16; TEMP 98.6; O2SAT 98
[2018-01-19] MEDS: RESP: ALBUTEROL 2.5 MG/IPRATROPIUM 0.5 MG NEB (SCH) NEB ×2 (08:00→20:47)
[2018-01-19] MEDS ORDERED: SODIUM CHLOR 0.9% 250 ML INJ 250 ML IV ONE (08:00)
[2018-01-19] MEDS: MULTIVITAMINS/MINERALS THERAPEUTIC TAB PO SCH (08:45)
[2018-01-19] MEDS: GABAPENTIN 300 MG CAP PO SCH ×3 (08:46→16:02)
[2018-01-19] MEDS: FAMOTIDINE 20 MG TAB PO SCH ×2 (08:46→20:03)
[2018-01-19] MEDS: DOCUSATE SODIUM 50 MG/SENNA 8.6 MG TAB PO SCH ×2 (08:46→20:03)
[2018-01-19] MEDS: LIDOCAINE HCL 5% PATCH T-DERMAL SCH (08:47)
[2018-01-19] MEDS: BACITRACIN TOP OINT 15 GM TUBE TOP SCH ×2 (08:48→20:03)
[2018-01-19] MEDS ORDERED: LEVO100T5 PO (08:51)
[2018-01-19] MEDS ORDERED: CALCIUM CARBONATE 500 MG CHEWABLE TAB CHEW PRN (11:00)
[2018-01-19] MEDS ORDERED: ceFAZolin INJ 1,000 MG VIAL ONE (11:02)
[2018-01-19] MEDS ORDERED: GENTAMICIN SULFATE 80 MG/2 ML VIAL ONE (11:02)
[2018-01-19] MEDS ORDERED: SODIUM CHLORID 0.9% 500 ML IV PRN (11:15)
[2018-01-19] MEDS ORDERED: CHLORHEXIDINE GLUCONATE 2 % 1 PACK (2 CLOTHS) TOPICAL PRN (11:15)
[2018-01-19] MEDS ORDERED: INSULIN HUMAN REGULAR 1,000 UNITS/10 ML VIAL SQ PRN (11:15)
[2018-01-19] MEDS ORDERED: METOPROLOL TARTRATE 25 MG TAB PO PRN (11:15)
[2018-01-19] MEDS ORDERED: LACTATED RINGER'S 1000 ML IV PRN (11:15)
[2018-01-19] MEDS ORDERED: POVIDONE IODINE 5% (ANTISEPSIS KIT) 4 APPLICATIONS EACH NARE PRN (11:15)
[2018-01-19] MEDS ORDERED: MIDAZOLAM HCL 2 MG/2 ML VIAL ONE (11:17)
[2018-01-19] MEDS ORDERED: ACETAMINOPHEN 1000 MG/100 ML 100 ML IV ONE (11:17)
[2018-01-19] MEDS ORDERED: KETAMINE HCL 50 MG/5 ML SYRINGE ONE (11:18)
[2018-01-19] MEDS ORDERED: VANCOMYCIN HCL 1000 MG VIAL ONE (11:37)
[2018-01-19] MEDS ORDERED: PROPOFOL 200 MG/20 ML AMP IV ONE (12:00)
[2018-01-19] MEDS ORDERED: LACTATED RINGER'S 1000 ML INJ 1,000 ML IV ONE (12:00)
[2018-01-19] MEDS ORDERED: ONDANSETRON HCL 4 MG/2 ML VIAL IV ONE (12:00)
[2018-01-19] MEDS ORDERED: LIDOCAINE HCL 1% PF 5 ML SYRINGE OTHER ONE (12:00)
[2018-01-19] MEDS ORDERED: DEXAMETHASONE SOD PHOS 4 MG/ML VIAL IV ONE (12:00)
[2018-01-19] MEDS ORDERED: SUCCINYLCHOLINE CHLORIDE 200 MG/10 ML VIAL IV ONE (12:00)
[2018-01-19] MEDS ORDERED: ePHEDrine/NS 25 MG/5 ML SYRINGE IV ONE (12:00)
[2018-01-19] MEDS ORDERED: PHENYLEPH/NS 1000 MCG/10 ML SYR IV ONE (12:00)
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
--- NOTE | 2018-01-19 13:26 | PD.OP ---
cc: Brian Hicks MD Operative Report Date of Surgery: Jan 19, 2018 Preoperative Diagnosis: Comminuted left proximal humerus fracture, open wound left arm Postoperative Diagnosis: Procedure: Open reduction internal fixation left proximal humerus fracture, secondary closure of left medial arm wound Anesthesia: General Surgeon: Brian Hicks Damper Fitter(s): ANIVAL Coppola PA-C The surgical procedure was assisted by my physician assistant analyst. My P.A. presence was necessary throughout this case for the manipulation and positioning of the surgical extremity. My P.A. was assisting me throughout the duration of this procedure. The skill set of a physician assistant analyst was medically necessary to complete this procedure. During the surgical case the surgical technician was working at the back table and the physician assistant analyst was directly assisting me. Operation and Findings: Implants used: Synthes Plan of activity: Pendulum exercises left arm Patient was seen and evaluated preoperatively. Patient was found to have a displaced proximal humerus fracture. He previously had a vascular repair done and has a 6 inch open wound over the medial aspect of the upper arm. The risks and benefits of surgical and nonsurgical options were discussed in detail and informed consent was obtained for surgery. Patient was brought to the operating room and placed on or table. IV sedation and GETA were administered by anesthesiologist. Antibiotics were given prior to incision. Operative arm and shoulder were prepped with alcohol followed by Hibiclens and draped usual sterile fashion. Timeout procedure was performed. Procedure began with a 5 inch incision over the anterior shoulder. Cephalic vein was identified. A deltopectoral approach was utilized. The fracture was now visualized. Soft tissue was retracted. Attention was now turned to reduction. Gentle traction was applied. The humeral shaft was reduced to the humeral head. Fracture was manipulated to achieve excellent reduction. There was comminution of the metaphyseal region. Each fracture keyed in excellent alignment. Multiplanar fluoroscopy confirmed well aligned fracture. Multiple K wires were used to hold provisional fixation. A long Synthes proximal humerus plate was selected. Plate was provisionally held in place K wires. 3.5 cortical screws were used to compress plate to bone. Fluoroscopy confirmed appropriate plate placement and fracture reduction. Multiple locking screws were now placed in the humeral head. Screws were predrilled and premeasured for appropriate length. Care was taken not to penetrate the articular surface. Additional screws were placed in the humeral shaft. Final fluoroscopy revealed well aligned fracture with well-placed hardware. Wound was thoroughly irrigated. Fascia was closed with #1 Vicryl, subcutaneous tissues closed with 3 -0 Vicryl, and skin was closed with derek. Next attention was turned to secondary closure of the medial wound. The wound was thoroughly irrigated with sterile saline. Subcutaneous tissue was reapproximated with 3-0 PDS. Skin was now closed with 3-0 nylon. A combination of vertical mattress and retention sutures were utilized. The wound was completely closed with minimal tension. Skin edges were well approximated. sterile dressings were applied. Patient was placed into a sling. Patient was awakened and transferred to recovery in stable condition. Needle and sponge counts were correct. Brian Hicks MD Jan 19, 2018 13:26
[2018-01-19] MEDS ORDERED: DO NOT ADM ANY ANTICOAGULANT DRUGS PRN (14:08)
--- NOTE | 2018-01-19 14:14 | RADRPT ---
EXAM DATE/TIME: 01/19/2018 13:04 [facility] COMPARISON: No previous studies available for comparison. INDICATIONS : ORIF of left humerus in operating room. MEDICAL HISTORY : None. SURGICAL HISTORY : None. ENCOUNTER: Initial ACUITY: 1 day PAIN SCORE: Non-responsive. LOCATION: Left upper extremity humerus FINDINGS: Hardware is noted within the left proximal humerus status post ORIF. The fracture fragments are adequ ately aligned. CONCLUSION: Status post ORIF of left proximal humeral fracture with fracture fragments adequately aligned. Kev Benavides MD on January 19, 2018 at 14:11 Board Certified Radiologist. This report was verified electronically.
[2018-01-19] MEDS ORDERED: *MEPERIDINE 25 MG INJ VIAL PERIprocedural Use ONLY ONE (14:19)
[2018-01-19] MEDS ORDERED: *morphine SULFATE 8 MG/ML PERIprocedure ONLY ONE ×2 (14:29→14:45)
[2018-01-19] MEDS: ERGOCALCIFEROL (VIT D2) 50,000 UNIT CAP PO SCH (15:49)
[2018-01-19 16:00] VITALS: BP 125/69; PULSE 110; RESP 17; TEMP 97.8; O2SAT 96
[2018-01-19] MEDS: MORPHINE SULFATE 4 MG/ML INJ IV PUSH PRN ×2 (16:42→20:02)
--- NOTE | 2018-01-19 18:30 | PD.ORT.PN ---
Subjective Subjective Remarks No new complaints about R leg Objective Vitals Vital Signs Date Time Temp Pulse Resp B/P (MAP) Pulse Ox O2 Delivery O2 Flow Rate FiO2 01/19/18 16:00 97.8 110 17 125/69 (87) 96 01/19/18 15:15 97.8 105 16 127/75 (92) 98 Nasal Cannula 2 01/19/18 15:00 107 16 126/72 (90) 97 Nasal Cannula 2 01/19/18 14:50 15 01/19/18 14:50 15 01/19/18 14:45 110 16 125/70 (88) 96 Nasal Cannula 2 01/19/18 14:34 15 01/19/18 14:30 114 15 128/69 (88) 96 Nasal Cannula 2 01/19/18 14:15 118 15 131/65 (87) 98 Nasal Cannula 3 01/19/18 14:10 98.0 120 14 133/66 (88) 95 Nasal Cannula 3 01/19/18 08:46 Nasal Cannula 2.00 01/19/18 08:00 98.6 96 16 123/63 (83) 98 01/19/18 05:54 16 01/19/18 04:00 98.6 97 17 120/66 (84) 01/19/18 00:00 99.1 101 17 127/57 (80) 94 01/18/18 20:35 99 Nasal Cannula 2.00 01/18/18 20:15 Nasal Cannula 2.00 40 01/18/18 20:00 98.1 104 17 128/70 (89) 96 I/O 01/18/18 01/18/18 01/18/18 01/19/18 01/19/18 01/19/18 07:00 15:00 23:00 07:00 15:00 23:00 Intake Total 500 ml 400 ml 120 ml 2876 ml Output Total 1035 ml 240 ml 2150 ml 1100 ml 150 ml Balance -535 ml 400 ml -120 ml -2150 ml 1776 ml -150 ml Intake Oral 500 ml 120 ml IV Total 700 ml Packed Cells 400 ml Platelets 476 ml Blood Product IV Normal Saline Flush 0 ml Other 1700 ml Output Urine Total 875 ml 2000 ml 900 ml 150 ml Chest Tube Drainage Total 50 ml 40 ml 50 ml Drainage Total 110 ml 200 ml 100 ml Estimated Blood Loss 200 ml Bladder Scan Volume Amount 321 ml Result Diagram: 01/19/18 0500 01/19/18 0500 Imaging Last 24 hours Impressions Chest X-Ray 01/17/18 0600 Signed Impressions: Service Date/Time: Wednesday, January 17, 2018 03:08 - CONCLUSION: No significant interval change. Right-sided chest tube in place with prominent right-sided subcutaneous emphysema but no evidence of pneumothorax. Kartik Garcia MD Thoracic Spine CT 01/16/181537 Signed Impressions: Service Date/Time: Tuesday, January 16, 2018 15:56 - CONCLUSION: 1. No evidence of acute bony or soft tissue thoracic spine trauma. 2. Right pneumothorax, right lung contusion and subcutaneous emphysema. Morris Vu MD Lumbar Spine CT 01/16/181537 Signed Impressions: Service Date/Time: Tuesday, January 16, 2018 15:56 - CONCLUSION: 1. Large posterior subcutaneous hematoma with active extravasation from L4-S1. 2. No evidence of acute bone injury. 3. Advanced degenerative disease L5-S1. 4. No other significant abnormality. Morris Vu MD Head CT 01/16/181537 Signed Impressions: Service Date/Time: Tuesday, January 16, 2018 15:45 - CONCLUSION: No acute disease. Richard Rutherford MD Chest X-Ray 01/16/181537 Signed Impressions: Service Date/Time: Tuesday, January 16, 2018 15:17 - CONCLUSION: Right chest tube with resolution of the previously seen tension. Some residual pneumothorax is still suspected. Richard Rutherford MD Chest CT 01/16/181537 Signed Impressions: Service Date/Time: Tuesday, January 16, 2018 15:56 - CONCLUSION: 1. Large persistent right pneumothorax with a right-sided chest tube. 2. Bilateral areas is suspected pulmonary contusion. 3. Subpleural blebs or pneumatoceles. 4. Left proximal humeral fracture with extravasation/hemorrhage. 5. Right third through seventh rib fractures. 6. Subcutaneous emphysema in the right chest and axilla Richard Rutherford MD ADDENDUM: COMPARISON: CT CERVICAL SPINE W/O CONTRAST, January 16, 2018, 15:45. The CT scan was reviewed with Dr. Hammond. The axillary artery across the region of the fracture is occluded for a short segment. There is a large amount of surrounding hematoma. The artery reconstitutes at its junction with the brachial. The exam also demonstrates a small amount of active contrast extravasation at the site of the patient's fracture. Findings would be consistent with axillary artery injury. Juan Carlos Martinez MD Cervical Spine CT 01/16/18 1538 Signed Impressions: Service Date/Time: Tuesday, January 16, 2018 15:45 - CONCLUSION: 1. No evidence of acute cervical bony or soft tissue injury. 2. Subcutaneous emphysema at the base of the neck and superior mediastinum Morris Vu MD Abdomen/Pelvis CT 01/16/18 1538 Signed Impressions: Service Date/Time: Tuesday, January 16, 2018 15:56 - CONCLUSION: 1. Hemorrhage in the superficial fat in the midline at the lower back region from the L3-S1 levels. 2. No acute intra-abdominal or pelvic abnormality is seen. Richard Rutherford MD Pelvis X-Ray 01/16/18 1518 Signed Impressions: Service Date/Time: Tuesday, January 16, 2018 15:17 - CONCLUSION: No acute disease. Richard Rutherford MD Chest X-Ray 01/16/18 1518 Signed Impressions: Service Date/Time: Tuesday, January 16, 2018 15:17 - CONCLUSION: Right tension pneumothorax. Richard Rutherford MD Objective Remarks The patient is awake and alert. Right lower extremity dressings are clean and intact The compartments are soft. DNVI Assessment & Plan Assessment and Plan Postop day #3 status post right leg irrigation and debridement with intramedullary nailing of tibia. Postop day #3 status post left upper extremity fasciotomy and axillary artery exploration (Dr. Aguila), with left proximal humerus fracture. Postop Day #0 s/p L prox humerus ORIF (Dr. Patterson) Daily dressing changes to the right lower extremity. Completed ABX for open fx R LE Lovenox for DVT prophylaxis. Nonweightbearing to right lower extremity. I will sign off for now as per the R LE is concerned. Please re-consult as necessary. F/u Dr. Hanson in one week for right leg Rafa Hanson MD Jan 19, 2018 18:30
[2018-01-19 20:00] VITALS: BP 111/67; PULSE 106; RESP 18; TEMP 97.6; O2SAT 98
[2018-01-19 20:53] VITALS: O2SAT 98
[2018-01-20] VITALS (10 sets, daily range): BP systolic 112–130; BP diastolic 55–72; PULSE 94–104; RESP 17–18; TEMP 97.8–98.4; O2SAT 94–99
[2018-01-20] MEDS: METHOCARBAMOL 500 MG TAB PO SCH ×3 (06:00→20:07)
[2018-01-20] MEDS: ACETAMINOPHEN/HYDROcodone 325 MG/10 MG TAB PO PRN ×6 (06:09→22:32)
[2018-01-20 06:49] LABS: AUTOMATED NEUTROPHIL # 7.8 TH/MM3 (1.8-7.7); BASOPHIL % 0.2 % (0.0-2.0); LYMPH % 7.8 % (9.0-44.0); LYMPHOCYTE # 0.7 TH/MM3 (1.0-4.8); MEAN CELL VOLUME 88.2 FL (80.0-100.0); MEAN CORPUSCULAR HEMOGLOBIN 30.6 PG (27.0-34.0); MEAN CORPUSCULAR HGB CONC 34.7 % (32.0-36.0); MEAN PLATELET VOLUME 7.5 FL (7.0-11.0); MONO % 8.3 % (0.0-8.0); MONOCYTE # 0.8 TH/MM3 (0-0.9); NEUT % 83.7 % (16.0-70.0); PLATELET COUNT 138 TH/MM3 (150-450); RED BLOOD COUNT 2.23 MIL/MM3 (4.50-5.90); RED CELL DISTRIBUTION WIDTH 14.1 % (11.6-17.2); WHITE BLOOD COUNT 9.3 TH/MM3 (4.0-11.0)
--- NOTE | 2018-01-20 06:57 | RADRPT ---
EXAM DATE/TIME: 01/20/2018 06:16 [facility] COMPARISON: CHEST SINGLE AP, January 18, 2018, 4:46. INDICATIONS : Pneumothorax. MEDICAL HISTORY : None. SURGICAL HISTORY : Left proximal humerus ORIF. Right tibia ORIF. Chest tube, right. ENCOUNTER: Subsequent ACUITY: 4 - 6 days PAIN SCORE: 3/10 LOCATION: Bilateral chest FINDINGS: A single view of the chest demonstrates small right apical pneumothorax. Right-sided chest tube uncha nged. Bibasilar densities. Heart normal in size. Right jugular central line stable in position. Osse ous structures are intact. CONCLUSION: Small right apical pneumothorax. Bibasilar densities. Jose Rodríguez MD on January 20, 2018 at 6:55 Board Certified Radiologist. This report was verified electronically.
[2018-01-20 07:04] LABS: BICARBONATE 31.9 MEQ/L (21.0-32.0); CALCIUM 8.1 MG/DL (8.5-10.1); CREATININE 0.74 MG/DL (0.60-1.30)
--- NOTE | 2018-01-20 07:06 | PD.ORT.PN ---
Subjective Subjective Remarks POD 1 s/p ORIF left proximal humerus with wound closure of axilla - Yesenia s/p evacuation of hematoma left axilla by Dr Aguila doing well. reports pain in shoulder but controlled Objective Vitals Vital Signs Date Time Temp Pulse Resp B/P (MAP) Pulse Ox O2 Delivery O2 Flow Rate FiO2 01/20/18 02:21 20 01/20/18 00:00 97.8 94 18 116/63 (80) 97 01/19/18 20:53 98 Nasal Cannula 2.00 01/19/18 20:00 97.6 106 18 111/67 (82) 98 01/19/18 20:00 18 01/19/18 19:10 Nasal Cannula 2.00 01/19/18 16:00 97.8 110 17 125/69 (87) 96 01/19/18 15:15 97.8 105 16 127/75 (92) 98 Nasal Cannula 2 01/19/18 15:00 107 16 126/72 (90) 97 Nasal Cannula 2 01/19/18 14:50 15 01/19/18 14:50 15 01/19/18 14:45 110 16 125/70 (88) 96 Nasal Cannula 2 01/19/18 14:34 15 01/19/18 14:30 114 15 128/69 (88) 96 Nasal Cannula 2 01/19/18 14:15 118 15 131/65 (87) 98 Nasal Cannula 3 01/19/18 14:10 98.0 120 14 133/66 (88) 95 Nasal Cannula 3 01/19/18 08:46 Nasal Cannula 2.00 01/19/18 08:00 98.6 96 16 123/63 (83) 98 I/O 01/19/18 01/19/18 01/19/18 01/20/18 01/20/18 01/20/18 07:00 15:00 23:00 07:00 15:00 23:00 Intake Total 2876 ml 480 ml 480 ml Output Total 2150 ml 1100 ml 800 ml 2440 ml Balance -2150 ml 1776 ml -320 ml -1960 ml Intake Oral 480 ml 480 ml IV Total 700 ml Platelets 476 ml Blood Product IV Normal Saline Flush 0 ml Other 1700 ml Output Urine Total 2000 ml 900 ml 800 ml 2400 ml Chest Tube Drainage Total 50 ml 40 ml Drainage Total 100 ml Estimated Blood Loss 200 ml # Bowel Movements 0 Result Diagram: 01/19/18 0500 01/19/18 0500 Imaging Last 24 hours Impressions Chest X-Ray 01/17/18 0600 Signed Impressions: Service Date/Time: Wednesday, January 17, 2018 03:08 - CONCLUSION: No significant interval change. Right-sided chest tube in place with prominent right-sided subcutaneous emphysema but no evidence of pneumothorax. Kartik Garcia MD Thoracic Spine CT 01/16/181537 Signed Impressions: Service Date/Time: Tuesday, January 16, 2018 15:56 - CONCLUSION: 1. No evidence of acute bony or soft tissue thoracic spine trauma. 2. Right pneumothorax, right lung contusion and subcutaneous emphysema. Morris Vu MD Lumbar Spine CT 01/16/181537 Signed Impressions: Service Date/Time: Tuesday, January 16, 2018 15:56 - CONCLUSION: 1. Large posterior subcutaneous hematoma with active extravasation from L4-S1. 2. No evidence of acute bone injury. 3. Advanced degenerative disease L5-S1. 4. No other significant abnormality. Morris Vu MD Head CT 01/16/181537 Signed Impressions: Service Date/Time: Tuesday, January 16, 2018 15:45 - CONCLUSION: No acute disease. Richard Rutherford MD Chest X-Ray 01/16/181537 Signed Impressions: Service Date/Time: Tuesday, January 16, 2018 15:17 - CONCLUSION: Right chest tube with resolution of the previously seen tension. Some residual pneumothorax is still suspected. Richard Rutherford MD Chest CT 01/16/181537 Signed Impressions: Service Date/Time: Tuesday, January 16, 2018 15:56 - CONCLUSION: 1. Large persistent right pneumothorax with a right-sided chest tube. 2. Bilateral areas is suspected pulmonary contusion. 3. Subpleural blebs or pneumatoceles. 4. Left proximal humeral fracture with extravasation/hemorrhage. 5. Right third through seventh rib fractures. 6. Subcutaneous emphysema in the right chest and axilla Richard Rutherford MD ADDENDUM: COMPARISON: CT CERVICAL SPINE W/O CONTRAST, January 16, 2018, 15:45. The CT scan was reviewed with Dr. Hammond. The axillary artery across the region of the fracture is occluded for a short segment. There is a large amount of surrounding hematoma. The artery reconstitutes at its junction with the brachial. The exam also demonstrates a small amount of active contrast extravasation at the site of the patient's fracture. Findings would be consistent with axillary artery injury. Juan Carlos Martinez MD Cervical Spine CT 01/16/18 1538 Signed Impressions: Service Date/Time: Tuesday, January 16, 2018 15:45 - CONCLUSION: 1. No evidence of acute cervical bony or soft tissue injury. 2. Subcutaneous emphysema at the base of the neck and superior mediastinum Morris Vu MD Abdomen/Pelvis CT 01/16/18 1538 Signed Impressions: Service Date/Time: Tuesday, January 16, 2018 15:56 - CONCLUSION: 1. Hemorrhage in the superficial fat in the midline at the lower back region from the L3-S1 levels. 2. No acute intra-abdominal or pelvic abnormality is seen. Richard Rutherford MD Pelvis X-Ray 01/16/18 1518 Signed Impressions: Service Date/Time: Tuesday, January 16, 2018 15:17 - CONCLUSION: No acute disease. Richard Rutherford MD Chest X-Ray 01/16/18 1518 Signed Impressions: Service Date/Time: Tuesday, January 16, 2018 15:17 - CONCLUSION: Right tension pneumothorax. Richard Rutherford MD Objective Remarks LUE: dressings clean and dry. intact. NVI to median/ulnar nerve. good extension of wrist and fingers Assessment & Plan Assessment and Plan Postop day #4 status post right leg irrigation and debridement with intramedullary nailing of tibia. Postop day #4 status post left upper extremity fasciotomy and axillary artery exploration (Dr. Aguila) Postop Day #1 s/p L prox humerus ORIF with axillary wound closure (Dr. Patterson) Daily dressing changes to the right lower extremity. Completed ABX for open fx R LE Lovenox for DVT prophylaxis. Nonweightbearing to right lower extremity. NWB to LUE pendulum exercises daily dressing changes to begin POD 2 ortho surgeries complete at this time f/u with Yesenia or PA in 2 weeks f/u with Margie in 1 week Marciano Sol/[facility] PA Jan 20, 2018 07:06
--- NOTE | 2018-01-20 07:08 | HHI.FF ---
Face to Face Verification Diagnosis: (1) Proximal humerus fracture (2) Fracture, tibia, shaft, open Physical Therapy Gait training, Wheelchair training Right LE Weight Bearing: Non WB Right LE Range of Motion: Active ROM Left LE Weight Bearing: WB as tolerated Occupational Therapy Right UE Weight Bearing: WB as tolerated Left UE Weight Bearing: Non WB Left UE Range of Motion: Pendular Nursing Nursing: Dressing changes Dressing Changes: Daily dressing change, 4x4s, Paper tape, Xeroform I have seen patient Richard Sevilla on 01/20/18. My clinical findings support the need for the requested home health care services because: Ltd mobility - disease progression I certify that my clinical findings support that this patient is homebound because: Post-op weakness Marciano Sol/[facility] Jan 20, 2018 07:08
[2018-01-20] MEDS ORDERED: WHEEMIS3 (07:10)
[2018-01-20 07:14] LABS: HEMATOCRIT 19.7 % (39.0-51.0); HEMOGLOBIN 6.8 GM/DL (13.0-17.0)
[2018-01-20] MEDS: MORPHINE SULFATE 4 MG/ML INJ IV PUSH PRN (07:41)
[2018-01-20] MEDS: RESP: ALBUTEROL 2.5 MG/IPRATROPIUM 0.5 MG NEB (SCH) NEB ×4 (08:00→19:34)
[2018-01-20] MEDS: MAGNESIUM HYDROXIDE SUSP 30 ML CUP PO SCH ×2 (09:00→20:07)
[2018-01-20] MEDS: LACTULOSE SYRUP 20 GM/30 ML CUP PO SCH (09:00)
[2018-01-20] MEDS: DOCUSATE SODIUM 50 MG/SENNA 8.6 MG TAB PO SCH ×2 (09:29→20:07)
[2018-01-20] MEDS: GABAPENTIN 300 MG CAP PO SCH ×3 (09:31→16:30)
[2018-01-20] MEDS: FAMOTIDINE 20 MG TAB PO SCH ×2 (09:31→20:07)
[2018-01-20] MEDS: MULTIVITAMINS/MINERALS THERAPEUTIC TAB PO SCH (09:31)
[2018-01-20] MEDS: CHOLECALCIFEROL (VIT D3) 1000 UNIT TAB PO SCH (09:31)
[2018-01-20] MEDS: LIDOCAINE HCL 5% PATCH T-DERMAL SCH (09:31)
[2018-01-20] MEDS: BACITRACIN TOP OINT 15 GM TUBE TOP SCH ×2 (09:36→20:08)
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
[2018-01-20] MEDS: ENOXAPARIN SODIUM 30 MG/0.3 ML SYRINGE SQ SCH (22:32)
[2018-01-21] VITALS (8 sets, daily range): BP systolic 114–136; BP diastolic 66–76; PULSE 90–96; RESP 17–50; TEMP 97.2–98.9; O2SAT 91–98
[2018-01-21] MEDS: LEVOTHYROXINE SODIUM 100 MCG TAB PO SCH (05:25)
[2018-01-21] MEDS: ACETAMINOPHEN/HYDROcodone 325 MG/10 MG TAB PO PRN ×2 (05:25→09:09)
[2018-01-21] MEDS: METHOCARBAMOL 500 MG TAB PO SCH (05:25)
[2018-01-21 05:49] LABS: HEMATOCRIT 23.4 % (39.0-51.0); HEMOGLOBIN 8.3 GM/DL (13.0-17.0)
--- NOTE | 2018-01-21 06:13 | RADRPT ---
EXAM DATE/TIME: 01/21/2018 05:04 [facility] COMPARISON: CHEST SINGLE AP, January 20, 2018, 6:16. INDICATIONS : Shortness of breath, evaluate right chest tube MEDICAL HISTORY : None. SURGICAL HISTORY : Left proximal humerus ORIF. Right tibia ORIF. Chest tube, right ENCOUNTER: Subsequent ACUITY: 4 - 6 days PAIN SCORE: 5/10 LOCATION: Right chest FINDINGS: A single view of the chest demonstrates minimal bibasilar densities. Right-sided chest tube with tiny right apical pneumothorax. Heart normal in size. Osseous structures are intact. CONCLUSION: Tiny right apical pneumothorax. Bibasilar densities. Jose Rodríguez MD on January 21, 2018 at 6:11 Board Certified Radiologist. This report was verified electronically.
--- NOTE | 2018-01-21 07:27 | PD.ORT.PN ---
Subjective Subjective Remarks POD 2 s/p ORIF left proximal humerus with wound closure of axilla - Yesenia s/p evacuation of hematoma left axilla by Dr Aguila s/p IMN right tibia - Dr Hanson doing well. reports pain in shoulder but controlled Objective Vitals Vital Signs Date Time Temp Pulse Resp B/P (MAP) Pulse Ox O2 Delivery O2 Flow Rate FiO2 01/21/18 04:00 98.6 95 17 125/75 (92) 95 01/21/18 00:08 20 01/21/18 00:00 98.9 94 17 127/72 (90) 95 01/20/18 20:00 98.4 98 17 128/70 (89) 96 01/20/18 20:00 2.00 01/20/18 19:37 94 Nasal Cannula 2.00 01/20/18 16:00 98.0 100 18 123/58 (79) 97 01/20/18 12:59 98.0 104 17 125/72 98 01/20/18 12:39 98.1 103 17 119/65 98 01/20/18 10:02 98.2 102 17 120/68 97 01/20/18 10:00 Nasal Cannula 2.00 01/20/18 09:50 98.2 94 17 112/66 97 01/20/18 08:06 96 Nasal Cannula 2.00 01/20/18 08:00 98.4 96 17 130/55 (80) 99 I/O 01/20/18 01/20/18 01/20/18 01/21/18 01/21/18 01/21/18 07:00 15:00 23:00 07:00 15:00 23:00 Intake Total 480 ml 319 ml 2306 ml 200 ml Output Total 2440 ml 1550 ml 1000 ml Balance -1960 ml 319 ml 756 ml -800 ml Intake Oral 480 ml 1840 ml 200 ml IV Total 100 ml Packed Cells 289 ml 356 ml Blood Product IV Normal Saline Flush 30 ml 10 ml Output Urine Total 2400 ml 1500 ml 1000 ml Chest Tube Drainage Total 40 ml 50 ml # Bowel Movements 0 0 Result Diagram: 01/21/18 0533 01/20/18 0600 Imaging Last 24 hours Impressions Chest X-Ray 01/17/18 0600 Signed Impressions: Service Date/Time: Wednesday, January 17, 2018 03:08 - CONCLUSION: No significant interval change. Right-sided chest tube in place with prominent right-sided subcutaneous emphysema but no evidence of pneumothorax. Kartik Garcia MD Thoracic Spine CT 01/16/181537 Signed Impressions: Service Date/Time: Tuesday, January 16, 2018 15:56 - CONCLUSION: 1. No evidence of acute bony or soft tissue thoracic spine trauma. 2. Right pneumothorax, right lung contusion and subcutaneous emphysema. Morris Vu MD Lumbar Spine CT 01/16/181537 Signed Impressions: Service Date/Time: Tuesday, January 16, 2018 15:56 - CONCLUSION: 1. Large posterior subcutaneous hematoma with active extravasation from L4-S1. 2. No evidence of acute bone injury. 3. Advanced degenerative disease L5-S1. 4. No other significant abnormality. Morris Vu MD Head CT 01/16/181537 Signed Impressions: Service Date/Time: Tuesday, January 16, 2018 15:45 - CONCLUSION: No acute disease. Richard Rutherford MD Chest X-Ray 01/16/181537 Signed Impressions: Service Date/Time: Tuesday, January 16, 2018 15:17 - CONCLUSION: Right chest tube with resolution of the previously seen tension. Some residual pneumothorax is still suspected. Richard Rutherford MD Chest CT 01/16/181537 Signed Impressions: Service Date/Time: Tuesday, January 16, 2018 15:56 - CONCLUSION: 1. Large persistent right pneumothorax with a right-sided chest tube. 2. Bilateral areas is suspected pulmonary contusion. 3. Subpleural blebs or pneumatoceles. 4. Left proximal humeral fracture with extravasation/hemorrhage. 5. Right third through seventh rib fractures. 6. Subcutaneous emphysema in the right chest and axilla Richard Rutherford MD ADDENDUM: COMPARISON: CT CERVICAL SPINE W/O CONTRAST, January 16, 2018, 15:45. The CT scan was reviewed with Dr. Hammond. The axillary artery across the region of the fracture is occluded for a short segment. There is a large amount of surrounding hematoma. The artery reconstitutes at its junction with the brachial. The exam also demonstrates a small amount of active contrast extravasation at the site of the patient's fracture. Findings would be consistent with axillary artery injury. Juan Carlos Martinez MD Cervical Spine CT 01/16/181537 Signed Impressions: Service Date/Time: Tuesday, January 16, 2018 15:45 - CONCLUSION: 1. No evidence of acute cervical bony or soft tissue injury. 2. Subcutaneous emphysema at the base of the neck and superior mediastinum Morris Vu MD Abdomen/Pelvis CT 01/16/188 Signed Impressions: Service Date/Time: Tuesday, January 16, 2018 15:56 - CONCLUSION: 1. Hemorrhage in the superficial fat in the midline at the lower back region from the L3-S1 levels. 2. No acute intra-abdominal or pelvic abnormality is seen. Richard Rutherford MD Pelvis X-Ray 01/16/181517 Signed Impressions: Service Date/Time: Tuesday, January 16, 2018 15:17 - CONCLUSION: No acute disease. Richard Rutherford MD Chest X-Ray 01/16/181517 Signed Impressions: Service Date/Time: Tuesday, January 16, 2018 15:17 - CONCLUSION: Right tension pneumothorax. Richard Rutherford MD Objective Remarks LUE: dressings clean and dry. intact. NVI to median/ulnar nerve. good extension of wrist and fingers RLE: dressings clean and dry. intact. NVI Assessment & Plan Assessment and Plan Postop day #5 status post right leg irrigation and debridement with intramedullary nailing of tibia. Postop day #5 status post left upper extremity fasciotomy and axillary artery exploration (Dr. Aguila) Postop Day #2 s/p L prox humerus ORIF with axillary wound closure (Dr. Patterson) Daily dressing changes to the right lower extremity. Completed ABX for open fx R LE Lovenox for DVT prophylaxis. Nonweightbearing to right lower extremity. NWB to LUE pendulum exercises daily dressing changes to begin POD 2 ortho surgeries complete at this time f/u with Yesenia or PA in 2 weeks f/u with Margie in 1 week Marciano Sol/Administrative Tech PA Jan 21, 2018 07:27
[2018-01-21] MEDS ORDERED: PERI PO (07:29)
[2018-01-21] MEDS ORDERED: MAGN30S PO (07:29)
[2018-01-21] MEDS ORDERED: BISACODYL 10 MG SUPP RECTAL ONE (07:45)
[2018-01-21] MEDS ORDERED: BISACODYL EC 5 MG TABEC PO ONE (07:45)
[2018-01-21] MEDS: RESP: ALBUTEROL 2.5 MG/IPRATROPIUM 0.5 MG NEB (SCH) NEB ×4 (07:59→20:44)
[2018-01-21] MEDS: MAGNESIUM HYDROXIDE SUSP 30 ML CUP PO SCH ×2 (09:00→21:00)
[2018-01-21] MEDS: LACTULOSE SYRUP 20 GM/30 ML CUP PO SCH (09:00)
[2018-01-21] MEDS: MULTIVITAMINS/MINERALS THERAPEUTIC TAB PO SCH (09:08)
[2018-01-21] MEDS: CHOLECALCIFEROL (VIT D3) 1000 UNIT TAB PO SCH (09:08)
[2018-01-21] MEDS: BACITRACIN TOP OINT 15 GM TUBE TOP SCH ×2 (09:08→21:51)
[2018-01-21] MEDS: FAMOTIDINE 20 MG TAB PO SCH ×2 (09:08→21:50)
[2018-01-21] MEDS: GABAPENTIN 300 MG CAP PO SCH ×3 (09:08→17:34)
[2018-01-21] MEDS: LIDOCAINE HCL 5% PATCH T-DERMAL SCH (09:08)
[2018-01-21] MEDS: DOCUSATE SODIUM 50 MG/SENNA 8.6 MG TAB PO SCH ×2 (09:09→21:51)
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
[2018-01-21] MEDS: CYCLOBENZAPRINE HCL 10 MG TAB PO SCH ×2 (12:33→21:51)
[2018-01-21] MEDS: ENOXAPARIN SODIUM 30 MG/0.3 ML SYRINGE SQ SCH ×2 (12:34→23:17)
[2018-01-22] VITALS (7 sets, daily range): BP systolic 114–132; BP diastolic 68–78; PULSE 82–107; RESP 19–20; TEMP 97.7–98.6; O2SAT 92–98
[2018-01-22] MEDS: CYCLOBENZAPRINE HCL 10 MG TAB PO SCH ×3 (05:22→20:27)
[2018-01-22] MEDS: LEVOTHYROXINE SODIUM 100 MCG TAB PO SCH (05:22)
--- NOTE | 2018-01-22 06:26 | RADRPT ---
EXAM DATE/TIME: 01/22/2018 05:36 [facility] COMPARISON: CHEST SINGLE AP, January 21, 2018, 5:04. INDICATIONS : Shortness of breath. MEDICAL HISTORY : None. SURGICAL HISTORY : Left proximal humerus ORIF. Right tibia ORIF. Chest tube, right ENCOUNTER: Subsequent ACUITY: 1 week PAIN SCORE: Non-responsive. LOCATION: chest FINDINGS: Right thoracostomy tube remains in place. There is a stable miniscule right apical pneumothorax. Ther e has been interval removal of a right neck central catheter. Mild hazy bilateral primarily lower gin g zone parenchymal opacities persist unchanged. Cardiac contours are grossly stable. CONCLUSION: No significant change Richard Boston MD on January 22, 2018 at 6:22 Board Certified Radiologist. This report was verified electronically.
[2018-01-22] MEDS: RESP: ALBUTEROL 2.5 MG/IPRATROPIUM 0.5 MG NEB (SCH) NEB ×4 (07:44→19:31)
[2018-01-22] MEDS ORDERED: MAGNESIUM CITRATE SOLN 300 ML BTL PO ONE (08:30)
[2018-01-22] MEDS: FAMOTIDINE 20 MG TAB PO SCH ×2 (08:31→20:26)
[2018-01-22] MEDS: CHOLECALCIFEROL (VIT D3) 1000 UNIT TAB PO SCH (08:31)
[2018-01-22] MEDS: GABAPENTIN 300 MG CAP PO SCH ×3 (08:31→17:18)
[2018-01-22] MEDS: MULTIVITAMINS/MINERALS THERAPEUTIC TAB PO SCH (08:31)
[2018-01-22] MEDS: DOCUSATE SODIUM 50 MG/SENNA 8.6 MG TAB PO SCH ×2 (08:31→20:26)
[2018-01-22] MEDS: LIDOCAINE HCL 5% PATCH T-DERMAL SCH (08:31)
[2018-01-22] MEDS: BACITRACIN TOP OINT 15 GM TUBE TOP SCH ×2 (08:32→20:27)
[2018-01-22] MEDS: MAGNESIUM HYDROXIDE SUSP 30 ML CUP PO SCH ×2 (09:00→20:26)
[2018-01-22] MEDS: LACTULOSE SYRUP 20 GM/30 ML CUP PO SCH (09:00)
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
[2018-01-22] MEDS: ENOXAPARIN SODIUM 30 MG/0.3 ML SYRINGE SQ SCH (12:28)
[2018-01-22] MEDS: MORPHINE SULFATE 4 MG/ML INJ IV PUSH PRN (13:00)
[2018-01-23] VITALS: BP 117/64; PULSE 115; RESP 20; TEMP 99; O2SAT 96
[2018-01-23] MEDS: ENOXAPARIN SODIUM 30 MG/0.3 ML SYRINGE SQ SCH ×3 (02:18→23:58)
[2018-01-23] MEDS: diphenhydrAMINE HCL 25 MG CAP PO PRN ×2 (02:18→22:02)
[2018-01-23 03:24] LABS: AUTOMATED NEUTROPHIL # 5.8 TH/MM3 (1.8-7.7); BASOPHIL % 0.3 % (0.0-2.0); EOSINOPHIL # 0.1 TH/MM3 (0-0.4); EOSINOPHIL % 1.5 % (0.0-4.0); HEMATOCRIT 31.4 % (39.0-51.0); HEMOGLOBIN 10.6 GM/DL (13.0-17.0); LYMPH % 15.6 % (9.0-44.0); LYMPHOCYTE # 1.3 TH/MM3 (1.0-4.8); MEAN CELL VOLUME 88.5 FL (80.0-100.0); MEAN CORPUSCULAR HEMOGLOBIN 29.8 PG (27.0-34.0); MEAN CORPUSCULAR HGB CONC 33.7 % (32.0-36.0); MEAN PLATELET VOLUME 7.1 FL (7.0-11.0); MONOCYTE # 0.9 TH/MM3 (0-0.9); NEUT % 71.6 % (16.0-70.0); PLATELET COUNT 267 TH/MM3 (150-450); RED BLOOD COUNT 3.55 MIL/MM3 (4.50-5.90); RED CELL DISTRIBUTION WIDTH 14.6 % (11.6-17.2); WHITE BLOOD COUNT 8.1 TH/MM3 (4.0-11.0)
[2018-01-23 03:46] LABS: BICARBONATE 31.3 MEQ/L (21.0-32.0); CALCIUM 8.7 MG/DL (8.5-10.1); CREATININE 0.89 MG/DL (0.60-1.30)
[2018-01-23] MEDS: LEVOTHYROXINE SODIUM 100 MCG TAB PO SCH (04:42)
[2018-01-23] MEDS: CYCLOBENZAPRINE HCL 10 MG TAB PO SCH ×3 (04:42→22:02)
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
[2018-01-23] MEDS ORDERED: BISACODYL EC 5 MG TABEC PO ONE (07:30)
[2018-01-23] MEDS ORDERED: BISACODYL 10 MG SUPP RECTAL ONE (07:30)
[2018-01-23 08:00] VITALS: BP 111/70; PULSE 106; RESP 18; TEMP 97.9; O2SAT 97
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
[2018-01-23] MEDS: LACTULOSE SYRUP 20 GM/30 ML CUP PO SCH (09:00)
[2018-01-23] MEDS: CHOLECALCIFEROL (VIT D3) 1000 UNIT TAB PO SCH (09:26)
[2018-01-23] MEDS: GABAPENTIN 300 MG CAP PO SCH ×3 (09:26→17:28)
[2018-01-23] MEDS: DOCUSATE SODIUM 50 MG/SENNA 8.6 MG TAB PO SCH ×2 (09:26→20:40)
[2018-01-23] MEDS: MULTIVITAMINS/MINERALS THERAPEUTIC TAB PO SCH (09:26)
[2018-01-23] MEDS: BACITRACIN TOP OINT 15 GM TUBE TOP SCH ×2 (09:27→20:40)
[2018-01-23] MEDS: LIDOCAINE HCL 5% PATCH T-DERMAL SCH (09:27)
[2018-01-23] MEDS: FAMOTIDINE 20 MG TAB PO SCH ×2 (09:27→20:33)
[2018-01-23] MEDS: MAGNESIUM HYDROXIDE SUSP 30 ML CUP PO SCH ×2 (09:29→20:33)
[2018-01-23 12:00] VITALS: BP 110/66; PULSE 105; RESP 17; TEMP 98.4; O2SAT 99
[2018-01-23 16:00] VITALS: BP 123/71; PULSE 112; RESP 17; TEMP 97.7; O2SAT 99
[2018-01-23 20:00] VITALS: BP 109/65; PULSE 103; RESP 18; TEMP 98.7; O2SAT 98
[2018-01-23 21:06] VITALS: O2SAT 99
[2018-01-24] VITALS: BP 117/73; PULSE 109; RESP 18; TEMP 98.5; O2SAT 97
[2018-01-24] MEDS: LEVOTHYROXINE SODIUM 100 MCG TAB PO SCH (05:24)
[2018-01-24] MEDS: CYCLOBENZAPRINE HCL 10 MG TAB PO SCH ×2 (05:25→09:05)
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
[2018-01-24 08:00] VITALS: BP 114/71; PULSE 101; RESP 16; TEMP 98.8; O2SAT 100
[2018-01-24] MEDS: MAGNESIUM HYDROXIDE SUSP 30 ML CUP PO SCH ×2 (09:00→21:15)
[2018-01-24] MEDS: LACTULOSE SYRUP 20 GM/30 ML CUP PO SCH (09:01)
[2018-01-24] MEDS: FAMOTIDINE 20 MG TAB PO SCH ×2 (09:02→21:14)
[2018-01-24] MEDS: GABAPENTIN 300 MG CAP PO SCH ×3 (09:02→16:57)
[2018-01-24] MEDS: DOCUSATE SODIUM 50 MG/SENNA 8.6 MG TAB PO SCH ×2 (09:03→21:14)
[2018-01-24] MEDS: LIDOCAINE HCL 5% PATCH T-DERMAL SCH (09:04)
[2018-01-24] MEDS: CHOLECALCIFEROL (VIT D3) 1000 UNIT TAB PO SCH (09:04)
[2018-01-24] MEDS: MULTIVITAMINS/MINERALS THERAPEUTIC TAB PO SCH (09:04)
[2018-01-24] MEDS: BACITRACIN TOP OINT 15 GM TUBE TOP SCH ×2 (09:05→21:16)
[2018-01-24] MEDS ORDERED: MAGNESIUM CITRATE SOLN 300 ML BTL PO ONE (09:45)
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
[2018-01-24 10:34] VITALS: O2SAT 100
[2018-01-24 12:00] VITALS: BP 106/66; PULSE 111; RESP 17; TEMP 97.3; O2SAT 98
[2018-01-24] MEDS: ENOXAPARIN SODIUM 30 MG/0.3 ML SYRINGE SQ SCH ×2 (12:33→23:13)
[2018-01-24] MEDS: METHOCARBAMOL 500 MG TAB PO SCH ×2 (14:00→21:15)
[2018-01-24 16:00] VITALS: BP 103/58; PULSE 100; RESP 16; TEMP 97.5; O2SAT 100
[2018-01-24 20:00] VITALS: BP 118/68; PULSE 101; RESP 18; TEMP 98.1; O2SAT 97
[2018-01-24] MEDS: diphenhydrAMINE HCL 25 MG CAP PO PRN (23:13)
[2018-01-25] VITALS (7 sets, daily range): BP systolic 114–138; BP diastolic 59–78; PULSE 75–100; RESP 16–17; TEMP 97.4–98.2; O2SAT 96–100
[2018-01-25] MEDS: METHOCARBAMOL 500 MG TAB PO SCH ×3 (06:24→21:42)
[2018-01-25] MEDS: LEVOTHYROXINE SODIUM 100 MCG TAB PO SCH (06:24)
[2018-01-25] MEDS ORDERED: AMBI12.5 PO (06:27)
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
[2018-01-25] MEDS: MAGNESIUM HYDROXIDE SUSP 30 ML CUP PO SCH ×2 (09:00→21:00)
[2018-01-25] MEDS: LACTULOSE SYRUP 20 GM/30 ML CUP PO SCH (09:00)
[2018-01-25] MEDS: GABAPENTIN 300 MG CAP PO SCH ×3 (09:47→18:01)
[2018-01-25] MEDS: DOCUSATE SODIUM 50 MG/SENNA 8.6 MG TAB PO SCH ×2 (09:48→21:42)
[2018-01-25] MEDS: FAMOTIDINE 20 MG TAB PO SCH ×2 (09:48→21:42)
[2018-01-25] MEDS: LIDOCAINE HCL 5% PATCH T-DERMAL SCH (09:48)
[2018-01-25] MEDS: MULTIVITAMINS/MINERALS THERAPEUTIC TAB PO SCH (09:48)
[2018-01-25] MEDS: CHOLECALCIFEROL (VIT D3) 1000 UNIT TAB PO SCH (09:48)
[2018-01-25] MEDS: BACITRACIN TOP OINT 15 GM TUBE TOP SCH ×2 (09:49→21:43)
[2018-01-25] MEDS: ENOXAPARIN SODIUM 30 MG/0.3 ML SYRINGE SQ SCH ×2 (12:25→23:51)
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
[2018-01-25] MEDS: diphenhydrAMINE HCL 25 MG CAP PO PRN (23:51)
[2018-01-26] VITALS (8 sets, daily range): BP systolic 121–136; BP diastolic 65–68; PULSE 86–102; RESP 17–18; TEMP 97.6–98.4; O2SAT 98–100
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
[2018-01-26] MEDS: METHOCARBAMOL 500 MG TAB PO SCH ×3 (06:29→22:21)
[2018-01-26] MEDS: LEVOTHYROXINE SODIUM 100 MCG TAB PO SCH (06:29)
[2018-01-26] MEDS ORDERED: THERM PO (07:32)
[2018-01-26] MEDS ORDERED: OXYC-392 PO (07:32)
[2018-01-26] MEDS ORDERED: METH500T3 PO (07:32)
[2018-01-26] MEDS ORDERED: NEUR300C PO (07:32)
[2018-01-26] MEDS ORDERED: FAMO20TA2 PO (07:32)
[2018-01-26] MEDS ORDERED: LIDO1ADH4 T-DERMAL (07:32)
[2018-01-26] MEDS ORDERED: OXYC-395 PO (07:32)
[2018-01-26] MEDS ORDERED: Lactulose Liq PO (07:32)
[2018-01-26] MEDS: LIDOCAINE HCL 5% PATCH T-DERMAL SCH (08:53)
[2018-01-26] MEDS: CHOLECALCIFEROL (VIT D3) 1000 UNIT TAB PO SCH (08:53)
[2018-01-26] MEDS: GABAPENTIN 300 MG CAP PO SCH ×3 (08:53→17:30)
[2018-01-26] MEDS: MULTIVITAMINS/MINERALS THERAPEUTIC TAB PO SCH (08:53)
[2018-01-26] MEDS: FAMOTIDINE 20 MG TAB PO SCH ×2 (08:53→22:21)
[2018-01-26] MEDS: DOCUSATE SODIUM 50 MG/SENNA 8.6 MG TAB PO SCH ×2 (08:54→22:21)
[2018-01-26] MEDS: LACTULOSE SYRUP 20 GM/30 ML CUP PO SCH (08:54)
[2018-01-26] MEDS: MAGNESIUM HYDROXIDE SUSP 30 ML CUP PO SCH ×2 (08:54→21:00)
[2018-01-26] MEDS: BACITRACIN TOP OINT 15 GM TUBE TOP SCH ×2 (08:54→22:22)
[2018-01-26] MEDS ORDERED: AMBI10TA PO (11:34)
[2018-01-26] MEDS ORDERED: ZOLPIDEM TARTRATE 10 MG TAB PO PRN (12:00)
[2018-01-26] MEDS: ENOXAPARIN SODIUM 30 MG/0.3 ML SYRINGE SQ SCH ×2 (12:37→23:47)
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
[2018-01-26] MEDS: ERGOCALCIFEROL (VIT D2) 50,000 UNIT CAP PO SCH (15:05)
[2018-01-27] VITALS: BP 119/62; PULSE 95; RESP 18; TEMP 98.7; O2SAT 100
[2018-01-27] MEDS: METHOCARBAMOL 500 MG TAB PO SCH (05:57)
[2018-01-27] MEDS: LEVOTHYROXINE SODIUM 100 MCG TAB PO SCH (05:57)
[2018-01-27] MEDS: LACTULOSE SYRUP 20 GM/30 ML CUP PO SCH (07:26)
[2018-01-27] MEDS: MAGNESIUM HYDROXIDE SUSP 30 ML CUP PO SCH (07:27)
[2018-01-27 08:00] VITALS: BP 117/72; PULSE 95; RESP 17; TEMP 97.7; O2SAT 100
[2018-01-27] MEDS: LIDOCAINE HCL 5% PATCH T-DERMAL SCH (08:24)
[2018-01-27] MEDS: DOCUSATE SODIUM 50 MG/SENNA 8.6 MG TAB PO SCH (08:26)
[2018-01-27] MEDS: MULTIVITAMINS/MINERALS THERAPEUTIC TAB PO SCH (08:26)
[2018-01-27] MEDS: FAMOTIDINE 20 MG TAB PO SCH (08:26)
[2018-01-27] MEDS: CHOLECALCIFEROL (VIT D3) 1000 UNIT TAB PO SCH (08:26)
[2018-01-27] MEDS: GABAPENTIN 300 MG CAP PO SCH (08:26)
[2018-01-27] MEDS: BACITRACIN TOP OINT 15 GM TUBE TOP SCH (08:27)
== END 2018-01-27 10:09 | DRG 957 ==
LOC: NEPI 15:15 → NEDA 15:47 → EDBD 15:47 → N03A 22:22 → N07B 01-18 17:18
PROVIDERS: ADMIT Surgery; ATTEND Surgery
PROC: 03Q80ZZ Repair Left Brachial Artery, Open Approach (ICD-10-PCS; 2018-01-16)
PROC: 0W9930Z Drainage of Right Pleural Cavity with Drainage Device, Percutaneous Approach (ICD-10-PCS; 2018-01-16)
PROC: 30233N1 Transfusion of Nonautologous Red Blood Cells into Peripheral Vein, Percutaneous Approach (ICD-10-PCS; 2018-01-16)
PROC: 30233L1 Transfusion of Nonautologous Fresh Plasma into Peripheral Vein, Percutaneous Approach (ICD-10-PCS; 2018-01-16)
PROC: 30233R1 Transfusion of Nonautologous Platelets into Peripheral Vein, Percutaneous Approach (ICD-10-PCS; 2018-01-16)
PROC: 30233M1 Transfusion of Nonautologous Plasma Cryoprecipitate into Peripheral Vein, Percutaneous Approach (ICD-10-PCS; 2018-01-16)
PROC: 0QSG06Z Reposition Right Tibia with Intramedullary Internal Fixation Device, Open Approach (ICD-10-PCS; principal; 2018-01-16 16:30)
PROC: 0KN80ZZ Release Left Upper Arm Muscle, Open Approach (ICD-10-PCS; 2018-01-16 16:30)
PROC: 0PSD04Z Reposition Left Humeral Head with Internal Fixation Device, Open Approach (ICD-10-PCS; 2018-01-19)
PROC: 0JQF3ZZ Repair Left Upper Arm Subcutaneous Tissue and Fascia, Percutaneous Approach (ICD-10-PCS; 2018-01-19)
DX: S82.261 Displaced segmental fracture of shaft of right tibia (principal); S27.2XXA Traumatic hemopneumothorax, initial encounter; R57.8 Other shock; T79.A12A Traumatic compartment syndrome of left upper extremity, initial encounter; S45.09 Other specified injury of axillary artery; S45.192A Other specified injury of brachial artery, left side, initial encounter; S42.202A Unspecified fracture of upper end of left humerus, initial encounter for closed fracture; S27.321A Contusion of lung, unilateral, initial encounter; S22.41XA Multiple fractures of ribs, right side, initial encounter for closed fracture; S82.451C Displaced comminuted fracture of shaft of right fibula, initial encounter for open fracture type IIIA, IIIB, or IIIC; S30.0XXA Contusion of lower back and pelvis, initial encounter; S40.212A Abrasion of left shoulder, initial encounter; E03.9 Hypothyroidism, unspecified; K30 Functional dyspepsia; Z79.899 Other long term (current) drug therapy; V29.9XXA Motorcycle rider (driver) (passenger) injured in unspecified traffic accident, initial encounter; Y92.410 Unspecified street and highway as the place of occurrence of the external cause
CPT/HCPCS: 32551; 36430; 70450; 71045; 71260; 72125; 72129; 72132; 72170; 73020; 73060; 73590; 73600; 74177; 76000; 80048; 82805; 83735; 84100; 84155; 85007; 85014; 85018; 85025; 85027; 85384; 85610; 85730; 86850; 86900; 86901; 86920; 86927; 86965; 87086; 90471; 90715; 94003; 94150; 94640; 94664; 94667; 94668; 96374; 96375; 99291; A0431-QM-SH; A0436-QM-SH; C1713; C1769; C9113; G0390; J0131; J0330; J0690; J1100; J1580; J1644; J1650; J2175; J2250; J2270; J2370; J2405; J2720; J3010; J3370; J7030; J7050; J7120; P9016; P9017; P9035; Q9967